=== PATIENT | female | born 1935 | race Caucasian/White ===

== ENCOUNTER → 2016-04-22 | Outpatient (CLI) | payer BC ==
[~2016-04-22] MED LIST: ACET-1311 PO; AMLO-110 PO; ASCO500T16 PO; AZAT50TA17 PO; B-COTAB18 PO; CALCTAB5 PO; CHOL100010 PO; GLUC500C4 PO; MAGN400T6 PO; MULT-506 PO; OMEP40CA PO; PARO10TA PO; PYRI60TA2 PO; VITA100C2 PO
--- NOTE | 2016-04-22 15:45 | MAMMOGRAPHY REPORT ---
BILATERAL DIGITAL SCREENING MAMMOGRAM WITH CAD: 04/22/2016 CLINICAL HISTORY: Routine screening. Patient has no complaints. TECHNIQUE: Bilateral CC and MLO views were obtained. Current study was also evaluated with a Comput er Aided Detection (CAD) system. COMPARISON: Comparison is made to exams dated: 04/19/2015 mammogram, 04/14/2013 mammogram, 04/08/2011 ma mmogram, 04/04/2010 mammogram, and 04/03/2009 mammogram - [facility]. BREAST COMPOSITION: There are scattered areas of fibroglandular density in both breasts. FINDINGS: There are benign-appearing calcifications, stable in each breast. No suspicious mass, arc hitectural distortion or cluster of microcalcifications is seen. IMPRESSION: ACR BI-RADS CATEGORY 1: NEGATIVE There is no mammographic evidence of malignancy. A 1 year screening mammogram is recommended. The p atient will receive written notification of the results. Approximately 10% of breast cancers are not detected with mammography. A negative mammographic repor t should not delay biopsy if a clinically suggestive mass is present. Jacquie Hart M.D. ay/:04/22/2016 15:16:10 Mysql Dba: Troy Hobbs RT(R)(M), [facility] letter sent: Normal 1/2 BI-RADS Code: ACR BI-RADS Category 1: Negative
== END | disposition home or self-care (01) ==
LOC: C.MAMM 10:08
PROVIDERS: ATTEND Internal Medicine
DX: Z12.31 Encounter for screening mammogram for malignant neoplasm of breast (principal)

== ENCOUNTER → 2016-09-09 | Outpatient (CLI) | payer BC | END | disposition home or self-care (01) | LOC: C.MAMM 08:54 | PROVIDERS: ATTEND Internal Medicine | DX: M85.851 Other specified disorders of bone density and structure, right thigh (principal); M85.852 Other specified disorders of bone density and structure, left thigh; S02.40DA Maxillary fracture, left side, initial encounter for closed fracture; S82.002A Unspecified fracture of left patella, initial encounter for closed fracture; X58.XXXA Exposure to other specified factors, initial encounter ==

== ENCOUNTER → 2017-04-24 | Outpatient (CLI) | payer BC ==
--- NOTE | 2017-04-24 13:58 | MAMMOGRAPHY REPORT ---
BILATERAL DIGITAL SCREENING MAMMOGRAM TOMOSYNTHESIS WITH CAD: 04/24/2017 CLINICAL HISTORY: Routine screening. Patient has no complaints. TECHNIQUE: Breast tomosynthesis in addition to standard 2D mammography was performed. Current study was also evaluated with a Computer Aided Detection (CAD) system. COMPARISON: Comparison is made to exams dated: 04/22/2016 mammogram, 04/19/2015 mammogram, 04/18/2014 m ammogram, 04/14/2013 mammogram, 04/13/2012 mammogram, and 04/08/2011 mammogram - [facility]. BREAST COMPOSITION: There are scattered areas of fibroglandular density in both breasts. FINDINGS: No suspicious masses, calcifications, or areas of architectural distortion are noted in ei ther breast. There has been no significant interval change compared to prior exams. IMPRESSION: ACR BI-RADS CATEGORY 1: NEGATIVE There is no mammographic evidence of malignancy. A 1 year screening mammogram is recommended. The pa tient will receive written notification of the results. Approximately 10% of breast cancers are not detected with mammography. A negative mammographic report should not delay biopsy if a clinically suggestive mass is present. Verna He M.D. /:04/24/2017 13:38:39 Cost Accounting Analyst: Azucena RAJAN(Garo)(M), [facility] letter sent: Normal 1/2 BI-RADS Code: ACR BI-RADS Category 1: Negative
== END | disposition home or self-care (01) ==
LOC: C.MAMM 09:51
PROVIDERS: ATTEND Internal Medicine
DX: Z12.31 Encounter for screening mammogram for malignant neoplasm of breast (principal)

== ENCOUNTER → 2017-06-30 | Outpatient (CLI) | payer BC ==
[2017-06-30 14:42] LABS: BASO % 0.5 %; BASO ABS # 0.02 K/uL (0-0.2); EOS % 2.7 %; EOS ABS # 0.11 K/uL (0-0.5); HEMATOCRIT 38.2 % (37-47); HEMOGLOBIN 12.7 g/dL (12.0-16.0); IG# 0.01 K/uL (0.00-0.02); LYMPH % 22.1 %; MEAN CELL VOLUME 100.8 fL (80-100); MEAN CORPUSCULAR HEMOGLOBIN 33.5 pg (25-34); MEAN CORPUSCULAR HGB CONC 33.2 g/dl (32-36); MONO % 13.2 %; MONO ABS # 0.54 K/uL (0.11-0.59); NEUT % 61.3 %; PLATELET COUNT 237 K/uL (130-400); RED CELL DISTRIBUTION WIDTH CV 14.1 % (11.5-14.5); WHITE BLOOD COUNT 4.08 K/uL (4.8-10.8)
[2017-06-30 15:14] LABS: TOTAL PROTEIN 6.8 gm/dl (6.4-8.2)
== END | disposition home or self-care (01) ==
LOC: C.LAB1850 13:32
PROVIDERS: ATTEND Psychiatry & Neurology Neuromuscular Medicine
DX: G47.00 Insomnia, unspecified (principal)

== ENCOUNTER → 2017-07-17 | Outpatient (CLI) | payer BC | END | disposition home or self-care (01) | LOC: C.LAB1850 13:01 | PROVIDERS: ATTEND Psychiatry & Neurology Neurology | DX: G70.00 Myasthenia gravis without (acute) exacerbation (principal) ==

== ENCOUNTER → 2017-08-17 | Outpatient (CLI) | payer BC ==
[2017-08-17 15:39] LABS: BASO % 0.9 %; BASO ABS # 0.04 K/uL (0-0.2); EOS % 2.4 %; EOS ABS # 0.11 K/uL (0-0.5); HEMOGLOBIN 12.7 g/dL (12.0-16.0); IG# 0.01 K/uL (0.00-0.02); LYMPH % 30.3 %; LYMPH ABS # 1.42 K/uL (1.2-3.4); MEAN CELL VOLUME 101.3 fL (80-100); MEAN CORPUSCULAR HGB CONC 32.6 g/dl (32-36); MONO % 9.2 %; MONO ABS # 0.43 K/uL (0.11-0.59); NEUT ABS # 2.67 K/uL (1.4-6.5); PLATELET COUNT 207 K/uL (130-400); RED CELL DISTRIBUTION WIDTH CV 14.4 % (11.5-14.5); RED CELL DISTRIBUTION WIDTH SD 53.3 fL (36.4-46.3); WHITE BLOOD COUNT 4.68 K/uL (4.8-10.8)
[2017-08-17 16:01] LABS: ALBUMIN 3.1 gm/dl (3.4-5.0); ALT/SGPT 25 U/L (12-78); AST/SGOT 31 U/L (15-37); BLOOD UREA NITROGEN 21 mg/dl (7-18); CALCIUM 8.7 mg/dl (8.5-10.1); CARBON DIOXIDE 31 mmol/L (21-32); CREATININE 0.95 mg/dl (0.60-1.20); GLUCOSE 90 mg/dl (70-99); POTASSIUM 4.4 mmol/L (3.5-5.1); SODIUM 140 mmol/L (136-145)
[2017-08-17 16:11] LABS: ALKALINE PHOSPHATASE 70 U/L (45-117); CHOLESTEROL 206 mg/dl (0-200); LDL CHOLESTEROL CALCULATED 118 mg/dl; TOTAL PROTEIN 7.2 gm/dl (6.4-8.2)
== END | disposition home or self-care (01) ==
LOC: C.LAB1850 14:48
PROVIDERS: ATTEND Internal Medicine
DX: I10 Essential (primary) hypertension (principal)

== ENCOUNTER → 2017-11-02 | Outpatient (CLI) | payer BC ==
[~2017-11-02] MED LIST changes: -AMLO-110 PO; +AMLO5TAB3 PO
--- NOTE | 2017-11-02 11:07 | DIAGNOSTIC IMAGING REPORT ---
(JARON/BLAD)RETROPERITON COMP HISTORY: Obstruction R33.9 Incomplete bladder [id number] COMPARISON: None. FINDINGS: Right kidney: Maximum dimension 8.9 cm. Mild hydroureteronephrosis. Normal corticomedullary differentiation and cortical thickness. Left kidney: Maximum dimension 8.8 cm. Mild hydronephrosis. Several small renal cysts. Normal corticomedullary differentiation and cortical thickness. Bladder: No bladder wall thickening. The bilateral ureteral jets were identified. IMPRESSION: 1. Mild bilateral hydroureteronephrosis. 2. Several small left renal cysts 3. Mild renal atrophy most likely age-related. The above report was generated using voice recognition software. It may contain grammatical, syntax or spelling errors. Electronically signed by: Aldo Beauchamp M.D. 11/02/2017 11:05 AM Dictated Date/Time: 11/02/2017 11:03 AM
[2017-11-02 13:11] LABS: ALBUMIN 3.2 gm/dl (3.4-5.0); ALKALINE PHOSPHATASE 79 U/L (45-117); ALT/SGPT 24 U/L (12-78); AST/SGOT 26 U/L (15-37); BLOOD UREA NITROGEN 22 mg/dl (7-18); CALCIUM 8.9 mg/dl (8.5-10.1); CARBON DIOXIDE 28 mmol/L (21-32); CREATININE 0.97 mg/dl (0.60-1.20); GLUCOSE 60 mg/dl (70-99); POTASSIUM 4.3 mmol/L (3.5-5.1); SODIUM 137 mmol/L (136-145); TOTAL PROTEIN 7.2 gm/dl (6.4-8.2)
== END | disposition home or self-care (01) ==
LOC: C.ULTR 10:12
PROVIDERS: ATTEND Urology
DX: R33.9 Retention of urine, unspecified (principal)

== ENCOUNTER 2024-05-16 17:24 | Inpatient (IN) ==
[2024-05-16] MEDS: SODIUM CHLORIDE 0.9% 1,000 ML IV SCH ×2 (18:06→20:20)
--- NOTE | 2024-05-16 18:20 | XRay Report ---
INDICATION: Cough. TECHNIQUE: Frontal radiograph of the chest. COMPARISON: Radiograph from 03/21/2020. FINDINGS: The cardiomediastinal silhouette and pulmonary vasculature appear within normal limits. 1 mild elevation of the left hemidiaphragm. Chronic appearing interstitial lung markings. No infiltrate, pleural effusion or pneumothorax. No acute osseous abnormality evident. IMPRESSION: No acute cardiopulmonary process. Electronically signed by Christiano Roach 05-16-2024 6:20 PM
[2024-05-16 18:28] LABS: Basophils # (auto) 0.05 K/uL (0.00-0.20); Basophils % (auto) 0.7 %; Eosinophils # (auto) 0.03 K/uL (0.00-0.50); Eosinophils % (auto) 0.4 %; Hematocrit (blood only) 37.4 % (37.0-47.0); Hemoglobin 12.4 g/dl (12.0-16.0); Immature Granulocytes # (auto) 0.03 K/uL (0.01-0.20); Immature Granulocytes % (auto) 0.4 %; Lymphocytes # (auto) 0.91 K/uL (1.20-3.40); Lymphocytes % (auto) 12.4 %; Mean Corpuscular Hemoglobin 32.1 pg (25.0-34.0); Mean Corpuscular Hgb Conc 33.2 g/dL (32.0-36.0); Mean Corpuscular Volume 96.9 fL (80.0-100.0); Mean Platelet Volume 10.4 fL (9.4-12.4); Monocytes # (auto) 0.58 K/uL (0.11-0.59); Monocytes % (auto) 7.9 %; Neutrophils # (auto) 5.73 K/uL (1.40-6.50); Neutrophils % (auto) 78.2 %; Platelet Count 178 K/uL (130-400); RDW Coefficient of Variation 13.3 % (11.5-14.5); RDW Standard Deviation 47.2 fL (36.4-46.3); Red Blood Count 3.86 M/uL (4.20-5.40); White Blood Count 7.33 K/ul (4.8-10.8)
[2024-05-16 18:47] LABS: Albumin Level 4.2 gm/dl (3.4-5.0); BUN Creatinine Ratio 34.2 (10-20); Bilirubin Direct 0.4 mg/dl (0-0.2); Bilirubin,Total 1.3 mg/dl (0.2-1.0); Calcium 10.1 mg/dl (8.6-10.3); Creatinine Clr Calc Pharmacy 34.2 ml/min; Magnesium 1.9 mg/dl (1.7-2.4); Potassium 3.5 mmol/L (3.5-5.1); Total Protein 7.3 gm/dl (6.0-8.3)
[2024-05-16 19:05] LABS: Troponin I High Sensitivity 55.8 pg/ml (0-14)
[2024-05-16 19:07] LABS: Appearance Urine Clear (Clear); Bacteria Urine Automated 1+ (None Seen); Bilirubin Urine Negative (Negative); Blood Urine 1+ (Negative); Cast Urine Automated 0-2 /lpf (0-2); Color Urine Yellow; Glucose Urine UA Negative (Negative); Ketones Urine 4+ (Negative); Leukocyte Esterase Urine Trace (Negative); Nitrite Urine Positive (Negative); Protein Urine 1+ (Negative); Specific Gravity Urine 1.023 (1.000-1.030); Urobilinogen Urine Negative (Negative); WBC Urine Automated 21-50 /hpf (0-5)
[2024-05-16 19:10] LABS: INR 1.1 (0.9-1.1); Prothrombin Time 12.3 Seconds (9.0-12.0)
[2024-05-16 19:22] LABS: Adenovirus PCR Not Detected (NotDetected); Bordetella parapertussis PCR Not Detected (NotDetected); Bordetella pertussis PCR Not Detected (NotDetected); Chlamydia pneumoniae PCR Not Detected (NotDetected); Coronavirus 229E PCR Not Detected (NotDetected); Coronavirus CoV-2 (COVID19)PCR Not Detected (NotDetected); Coronavirus HKU1 PCR Not Detected (NotDetected); Coronavirus NL63 PCR Not Detected (NotDetected); Coronavirus OC43PCR Not Detected (NotDetected); Human Metapneumovirus PCR Not Detected (NotDetected); Influenza A PCR Not Detected (NotDetected); Influenza B PCR Not Detected (NotDetected); Mycoplasma pneumoniae PCR Not Detected (NotDetected); Parainfluenza Virus 1 PCR Not Detected (NotDetected); Parainfluenza Virus 2 PCR Not Detected (NotDetected); Parainfluenza Virus 3 PCR Not Detected (NotDetected); Parainfluenza Virus 4 PCR Not Detected (NotDetected); Respiratory Syncytial VirusPCR Not Detected (NotDetected); Rhinovirus/Enterovirus PCR Not Detected (NotDetected)
[2024-05-16] MEDS: cefTRIAXone SODIUM 2,000 MG/50 ML BAG IV STA (20:20)
--- NOTE | 2024-05-16 21:25 | History & Physical Report ---
Date of Service May 16, 2024 Assessment & Plan (1) Rhabdomyolysis: (2) Metabolic encephalopathy: (3) Transaminitis: (4) Acute dehydration: (5) Elevated troponin: (6) Fall: (7) Acute UTI (urinary tract infection): (8) Myasthenia gravis: Plan Patient is a 88 y/o female with a past medical history of myasthenia gravis, hypertension, GERD, depression. She presented to the ED with her after they were found in their home on the floor by their grandson. It is unsure how long they were on the ground for, patient denies falling, confused from baseline on arrival. She is being admitted for rhabdomyolysis and PT/OT evals. She also was found to have UTI. #rhabdomyolysis/Transaminitis/acute dehydration 2/2 fall and on ground for multiple days BUN chronically elevated but acutely worsened to 26, BUN/CR 34.2 Anion gap 15 CK 1338 Creatinine stable, lactate negative, electrolytes WNL, procal WNL UA showed hematuria, 1+ protein, 4+ ketones Transaminitis total bili 1.3, direct bili 0.4, AST 105, ALT 58; trend CMP given 1 L NSS bolus in ED, continue fluid resuscitation with NSS @125ml/hr VBG and uric acid with a.m. labs Trend CK #metabolic encephalopathy head CT negative for acute changes, atrophy and chronic microvascular ischemic changes no electrolyte abnormalities Anticipate to improve with Tx above Melatonin prn as at risk for hospital-acquired delirium, promote good sleep-wake cycles #elevated troponin 2/2 above 55.8 -> 55.5 denies chest pain EKG showed NSR, no ischemic changes Trend troponin and monitor on telemetry #Fall unwitnessed, patient found on ground by grandson No traumatic injury seen on diagnostic imaging Tylenol as needed PT/OT to eval Fall and aspiration precautions #UTI Patient incontinent of bladder at baseline, denies urinary symptoms UTI highly likely given poor hygiene as on ground for multiple days UA infectious versus contaminant; 1+ protein, 4+ ketones, positive for nitrates, leukocyte esterase, 21-50 WBC, 3-5 epithelial cells, 1+ bacteria continue Rocephin follow urine cultures and blood cultures #myasthenia gravis History of myasthenia gravis and follows with neurology continue pyridostigmine hold azathioprine with acute infection Chronic stable diagnoses: HTNcontinue metoprolol Depressioncontinue paroxetine GERDcontinue pantoprazole Urinary incontinencecontinue tolterodine, Rush in place from ED VTE ppx: SCDs, low risk and fall risk Diet: heart healthy Dispo: med/tele Admission and Anticipated Discharge Date Admission Date: 05/16/24 History of Present Illness Chief Complaint: fall Primary Care Provider: Michelle Erickson MD Patient is a 88 y/o female with a past medical history of myasthenia gravis, hypertension, GERD, depression. She presented to the ED with her hisband after they were found in their home on the floor by their grandson. It is unsure how long they were on the ground for, patient denies falling, confused from baseline on arrival. She is being admitted for rhabdomyolysis and PT/OT evals. Patient seen at bedside with and [id number] present. She is alert and oriented x4 but still confused. She stated that her slid to the floor in the hallway and she got on the floor in the living room to stretch her legs. She is unsure of how long they were on the ground for but feels as though they laid down on Thursday. She denies falling and stated they went to the ground on their own. She stated that she was talking to the people on the TV and they were not understanding her and just laughing at her when she tried to asked them for help. She stated she slid around the house resulting in pain of her elbows, knees, and tailbone. However patient's [id number] noted that they have a phone in the kitchen but neither of them slipped to the kitchen to try to get the phone. Patient's grandson checks in on them frequently and found them on the ground today bringing them to the ED. Patient denies headache, dizziness, lightheadedness, dyspnea, chest pain, abdominal pain, nausea, dysuria, hematuria. Patient is incontinent of bladder at baseline. She stated that she denies urinary symptoms however did have a diaper on for the last states she was on the floor and was unable to get up to go to the bathroom. She stated she is thirsty on exam but she has not had fluids in multiple days. She denies nicotine use. She lives at home with her . She stated that their grandson checks on them frequently. They have another grandson and granddaughter that do not check in on them as often but do call. She stated they also have neighbors that check in often and assist with household tasks. She does not use assistance at baseline, denies difficulty with ambulation. She does not use oxygen at baseline. She has not had her home medications in multiple days due to being on the floor. She wishes to be full code at this time. Allergies Allergy/AdvReac Type Severity Reaction Status Date / Time No Known Allergies Allergy Verified 06/10/23 13:59 Home Medications Medication Instructions Recorded Confirmed Type acetaminophen 325 mg tablet 650 mg PO Q6H PRN Pain 11/08/18 05/16/24 History ascorbic acid (vitamin C) 500 mg 500 mg PO QAM #30 tabs 11/08/18 05/16/24 History tablet azathioprine 50 mg tablet 50 mg PO BID 11/08/18 05/16/24 History cholecalciferol (vitamin D3) 25 1,000 units PO QAM 11/08/18 05/16/24 History mcg (1,000 unit) tablet magnesium oxide 400 mg (241.3 mg 800 mg PO QID 11/08/18 07/31/23 History magnesium) tablet vitamin E succinate 268 mg (400 400 units PO QAM 11/08/18 07/31/23 History unit) tablet calcium lactate 84 mg PO QAM 03/21/19 05/16/24 History glucosamine sulf dipot 1 cap PO QAM 03/21/19 07/31/23 History chlr,msm,chond 550 mg-C 30 mg-norm 1 mg capsule (Glucosamine Chondroitin) multivitamin 1 tab PO QAM 03/21/19 07/31/23 History vitamin B complex 1 tab PO QAM 03/21/19 07/31/23 History pyridostigmine bromide 60 mg tablet See Rx Instructions PO QID 90 days 05/14/22 05/16/24 Rx #270 tabs tolterodine 2 mg tablet 2 mg PO BID 90 days #180 tabs 05/27/23 05/16/24 Rx pantoprazole 20 mg tablet,delayed 20 mg PO QAM #90 tabs 06/10/23 05/16/24 Rx release varicella-zoster glycoE [id number] 0.5 ml IM ONCE #1 ea 06/10/23 07/31/23 Rx adj(PF) 50 mcg/0.5 mL IM susp, kit (Shingrix (PF)) paroxetine HCl 10 mg tablet 10 mg PO QAM #90 tabs 06/24/23 05/16/24 Rx metoprolol succinate 25 mg 25 mg PO QAM #90 tabs 09/22/23 05/16/24 Rx tablet,extended release 24 hr Past Med/Surg History Problem List (Updated 05/18/24 @ 14:42 by Tom Atkinson DO) Overflow diarrhea Cognitive decline Asymptomatic bacteriuria Delirium Acute hypokalemia Metabolic encephalopathy Transaminitis Acute UTI (urinary tract infection) (Acute) Elevated troponin (Acute) Rhabdomyolysis (Acute) Fall (Acute) Acute dehydration (Acute) Myasthenia gravis (Chronic) Acid reflux disease (Acute) Arthralgia of multiple sites (Acute) Depression (Acute) Gait disturbance (Acute) Gastric nodule (Acute) Hematuria, microscopic (Acute) Hiatal hernia (Acute) Hypertension (Acute) Kyphoscoliosis (Acute) Muscle weakness (Acute) Osteopenia (Acute) Tiredness (Acute) Voice disturbance (Acute) Health care maintenance Personal history of immunosupression therapy (Acute) Left knee pain Medical History Serum potassium elevated PVD (peripheral vascular disease) Acute renal failure Subdural hemorrhage Nausea and vomiting Menopause Pleural effusion Gastrointestinal hemorrhage Fracture of orbit Left wrist injury Anemia Incontinence Neck stiffness Incomplete bladder emptying UTI (urinary tract infection) Backache Constipation Head trauma Dysuria Urinary retention Bradycardia Surgical History S/P loop electrosurgical excision procedure S/P foot surgery Family History Mother No pertinent family history Other Family history non-contributory Denies family history of Ovarian cancer Prostate cancer Myocardial infarction Breast cancer Colorectal cancer Social History Smoking Status: Never smoker Second Hand Exposure: No; Hx Alcohol Use: No Hx Substance Use: No Preferred Language: Mac[place] Communication Ability: Effective Visual Impairment: No Limitations Hearing Ability: Normal Hand Developer Required: No Beliefs That Will Affect Care: None marital status: Current Living Situation: Spouse current occupational status: retired Feels Safe at Home: Yes Safety Concerns: Feels Safe At This Time Dental Care, Regularly: Yes Physical Activity Frequency: 3-4 Times per Week Physical Activity Frequency Comment: Y-Water therapy Seatbelt Use: always Sunscreen Use: Yes Assistive Devices: None Review of Systems Review of Systems: see HPI Physical Exam Physical Exam: The patient is awake, alert and oriented 3, well developed and well nourished, normocephalic and atraumatic, in no acute distress. Non-toxic appearing. HEENT- EOMI, mucous membranes dry. Hearing grossly intact. Heart-normal S1 and S2. No murmurs, rubs or gallops. Lungs-clear bilaterally, no respiratory distress, no accessory muscle use. Abdomen-normal bowel sounds and soft. No ascites noted. Non-tender. Extremities- no clubbing, cyanosis, or edema. Rheumatologic-normal range of motion. Musculoskeletal: Extremities: extremities normal to inspection Hip: hip normal to inspection, no deformity, no skin erythema and no ecchymosis Knee: knee normal to inspection, no deformity, no skin erythema and no ecchymosis Results & Data Results & Data Vital Signs (Past 12 Hours) Vital Signs Temp Pulse Resp BP Pulse Ox O2 Del Method 05/16/24 20:30 72 21 135/90 95 Room Air 05/16/24 19:54 73 17 98 Room Air 05/16/24 19:48 82 18 98 Room Air 05/16/24 19:30 74 22 160/79 H 97 Room Air 05/16/24 19:21 80 24 98 Room Air 05/16/24 19:18 78 23 100 Room Air 05/16/24 19:00 137/91 05/16/24 18:51 20 98 Room Air 05/16/24 18:31 153/87 H 05/16/24 18:27 75 17 99 Room Air 05/16/24 17:30 36.5 C 75 24 142/88 H 100 Room Air Laboratory Results Reviewed CBC, PT/INR, CMP, bio fire, UA, CK, troponin Diagnostic Findings Reviewed head CT, chest CT, cervical spine CT, A/P CT, CXR Medications Administered ED: 1 l NSS bolus + 2G Rocephin ECG Additional Comments: NSR Code Status & VTE Plan Code Status full code VTE Prophylaxis Plan VTE Prophylaxis will be ordered: Yes Supervising Physician Co-Signing Physician Notes Attending addendum: I have physically seen this patient, have supervised the RENEE's activities, and agree with the H&P unless as otherwise noted. Assessment and Plan: The patient is an 88-year-old female with a past medical history including myasthenia gravis, hypertension, GERD, and depression. She was brought to the emergency department with her after her grandson found her in their home on the floor. It is unsure how long she was on the ground for, and the patient is not able to contribute significantly to HPI or ROS. Laboratories are suggestive for rhabdomyolysis, dehydration, and urinary tract infection #Rhabdomyolysis/transaminitis/acute dehydration- Found on the floor at home for unknown length of time. CK 1338, AST 105, ALT 58 and troponin of 55.5 All consistent with rhabdomyolysis Status post 1 L normal saline bolus in ED Continue IV fluid resuscitation with NSS at 125 mL/h x 1 additional liter VBG and uric acid with a.m. labs Follow serial CBC with differential, chemistry profile and CK Acute metabolic encephalopathy/UTI- Secondary to dehydration and rhabdo as noted above and urinary tract infection Follow urine culture and sensitivity Empiric ceftriaxone 2 g IV daily Follow serial laboratories as noted CT scan head without contrast without acute findings, does show cerebral atrophy and chronic microvascular ischemic changes Elevated troponin- In association with rhabdomyolysis Initial 55.8 with follow-up 55.5 no cardiac workup needed however will repeat in the a.m. Myasthenia gravis- Continue pyridostigmine Holding azathioprine while acutely infected If flare, may need to have Solu-Medrol PG Care Time/CCT Total # of Minutes Spent Total Time Spent with Patient: Total time spent is greater than 50% in coordination of care (as documented) at patient's floor/unit and/or counseling patient: Coding Level of Care Code 93320 INT INP/OBS CARE 3/75MIN Diagnoses Rhabdomyolysis M62.82 Metabolic encephalopathy G93.41 Transaminitis R74.01 Acute dehydration E86.0 Elevated troponin R79.89 Fall W19.XXXA Acute UTI (urinary tract infection) N39.0 Myasthenia gravis G70.00
--- NOTE | 2024-05-16 21:51 | Emergency Department Note ---
Impression & Plan Acute dehydration, Fall, Rhabdomyolysis, Elevated troponin, Acute UTI (urinary tract infection) ED Provider Note NAME: DHARA CLANCY AGE: 88 SEX: Female INFORMANT: Patient ED PROVIDER(S): Tom Ornelas MD CHIEF COMPLAINT: Fall PLAN: Disposition: Admitted Outpatient prescription management: none Referral: None MEDICAL DECISION MAKING: Patient presented because of a fall. Workup was initiated. CT imaging of the head, neck, chest abdomen pelvis were performed. Blood work revealed dehydration, mild rhabdomyolysis, elevated troponin. Urinalysis concerning for infection. Patient was hydrated and treated with IV Rocephin. CT imaging did not reveal any acute traumatic findings. BioFire testing was negative. On reassessment the patient was feeling improved. Mental status was good and she was answering questions appropriately. Discussed further management in the hospital with the patient and family. They were in agreement. Consultation was made with Dr. Edmond Mitchell of the [facility] service. Patient was evaluated in the ER for further management. Care/management discussed with: physical therapy manager Level of care consideration(s): After review of the information above and other included data, I feel the patient requires escalation of care to admission Triage Nursing notes: reviewed and agree them. Vital Signs: reviewed and remarkable for no significant abnormalities Additional History obtained from: Family Chronic Medical/Social Conditions affecting care: Myasthenia, hypertension Prior/ Outside/ External records reviewed: none Differential Diagnosis: Infection, dehydration, metabolic abnormality, hypo/hyperglycemia, electrolyte disturbance, anemia, hypoxia, cardiac sources, intracerebral event, toxicologic, neurologic, rhabdomyolysis, as well as other pathologies. Diagnostics, independently interpreted by me: ECG: Twelve-lead ECG was normal sinus rhythm at [address] elevation or depression. Cardiac Monitoring: Cardiac monitoring ordered by me: The patient was placed on continuous cardiac monitoring and observed. It revealed a normal sinus rhythm at 72 beats per minute without ectopy or evidence of dysrhythmia. Medical decision rules: none Imaging studies: Chest x-ray. Findings: A chest x-ray was performed and revealed no pneumothorax, effusion, infiltrate, pulmonary edema, free air under the diaphragm, or wide mediastinum. Impression: No acute disease. Head CT: A noncontrast CT scan of the head was performed and was negative for tumor, fracture, intracranial hemorrhage, or other acute pathology. CT scan of the cervical spine, chest abdomen and pelvis are negative for acute traumatic injury. HPI: 88 year old Female arrives for evaluation of a fall. Patient reportedly fell few days ago and could not get off the floor. She seemed confused when family found her. Patient was complaining of some mild lower back pain but otherwise denies any injury from her fall. She feels generally weak and has a dry mouth. She has not been able to eat or drink as she was stuck on the floor. Her was also found on the floor. Pt denies LOC, headache, fevers, chills, diaphoresis, neck pain, chest pain, breathing difficulties, nausea, vomiting, abdominal pain, upper back pain, melena, hematochezia, urinary symptoms, numbness, lymphadenopathy, rash, or other complaints. PAST MEDICAL HISTORY: See Below, myasthenia gravis, hypertension PAST SURGICAL HISTORY: See Below, cholecystectomy SOCIAL HISTORY: See Below, HOME MEDICATIONS: See Below ALLERGIES: See Below VITALS: See Below PHYSICAL EXAMINATION: GENERAL: Awake, alert, [id number], in no acute distress HENT: Normocephalic, atraumatic. Oropharynx with dry mucous membrane. EYES: Normal conjunctiva. Sclera non-icteric. PERRL. NECK: Inspection normal. Non-tender. Supple. No nuchal rigidity. FROM. No masses. RESPIRATORY: Clear to auscultation. No wheezes. No rales. Normal respiratory effort. CARDIAC: Normal rate. Normal rhythm. Systolic murmur present. Extremities warm and well perfused. Pulses equal. No JVD. GI: Soft, non-distended. No tenderness to palpation. No rebound or guarding. No masses. RECTAL: Deferred. MUSCULOSKELETAL: Atraumatic. Chest examination reveals no tenderness. The back is kyphotic on inspection without obvious abnormality. There is no CVA tenderness to palpation. No joint edema. Mild lumbar tenderness. Some mild skin breakdown noted in the area of the sacrum consistent with a pressure wound. No cellulitis. LOWER EXTREMITIES: Calves are equal size bilaterally and non-tender. No edema. No discoloration. NEURO: Normal sensorium. No focal sensory or motor deficits noted. Speech normal. SKIN: No rash or jaundice noted. PROCEDURES: none CRITICAL CARE: none OBSERVATION NOTE: none Past Med/Surg History Problem List (Updated 05/17/24 @ 00:15 by Background Daemon) Metabolic encephalopathy Transaminitis Acute UTI (urinary tract infection) (Acute) Elevated troponin (Acute) Rhabdomyolysis (Acute) Fall (Acute) Acute dehydration (Acute) Myasthenia gravis (Chronic) Acid reflux disease (Acute) Arthralgia of multiple sites (Acute) Depression (Acute) Gait disturbance (Acute) Gastric nodule (Acute) Hematuria, microscopic (Acute) Hiatal hernia (Acute) Hypertension (Acute) Kyphoscoliosis (Acute) Muscle weakness (Acute) Osteopenia (Acute) Tiredness (Acute) Voice disturbance (Acute) Health care maintenance Personal history of immunosupression therapy (Acute) Left knee pain Medical History Serum potassium elevated PVD (peripheral vascular disease) Acute renal failure Subdural hemorrhage Nausea and vomiting Menopause Pleural effusion Gastrointestinal hemorrhage Fracture of orbit Left wrist injury Anemia Incontinence Neck stiffness Incomplete bladder emptying UTI (urinary tract infection) Backache Constipation Head trauma Dysuria Urinary retention Bradycardia Surgical History S/P loop electrosurgical excision procedure S/P foot surgery Family History Mother No pertinent family history Other Family history non-contributory Denies family history of Ovarian cancer Prostate cancer Myocardial infarction Breast cancer Colorectal cancer Social History Smoking Status: Never smoker Second Hand Exposure: No; Hx Alcohol Use: No Hx Substance Use: No Preferred Language: Kosovan Communication Ability: Effective Visual Impairment: No Limitations Hearing Ability: Normal marital status: Current Living Situation: Spouse current occupational status: retired Feels Safe at Home: Yes Dental Care, Regularly: Yes Physical Activity Frequency: 3-4 Times per Week Physical Activity Frequency Comment: Y-Water therapy Seatbelt Use: always Sunscreen Use: Yes Allergies Allergies Allergy/AdvReac Type Severity Reaction Status Date / Time No Known Allergies Allergy Verified 06/10/23 13:59 Home Meds Home Medications Medication Instructions Recorded Confirmed acetaminophen 325 mg tablet 650 mg PO Q6H PRN Pain 11/08/18 05/16/24 ascorbic acid (vitamin C) 500 mg 500 mg PO QAM #30 tabs 11/08/18 05/16/24 tablet azathioprine 50 mg tablet 50 mg PO BID 11/08/18 05/16/24 cholecalciferol (vitamin D3) 25 1,000 units PO QAM 11/08/18 05/16/24 mcg (1,000 unit) tablet magnesium oxide 400 mg (241.3 mg 800 mg PO QID 11/08/18 07/31/23 magnesium) tablet vitamin E succinate 268 mg (400 400 units PO QAM 11/08/18 07/31/23 unit) tablet calcium lactate 84 mg PO QAM 03/21/19 05/16/24 glucosamine sulf dipot 1 cap PO QAM 03/21/19 07/31/23 chlr,msm,chond 550 mg-C 30 mg-norm 1 mg capsule (Glucosamine Chondroitin) multivitamin 1 tab PO QAM 03/21/19 07/31/23 vitamin B complex 1 tab PO QAM 03/21/19 07/31/23 Previous Rx's Medication Instructions Recorded pyridostigmine bromide 60 mg tablet See Rx Instructions PO QID 90 days 05/14/22 #270 tabs tolterodine 2 mg tablet 2 mg PO BID 90 days #180 tabs 05/27/23 pantoprazole 20 mg tablet,delayed 20 mg PO QAM #90 tabs 06/10/23 release varicella-zoster glycoE [id number] 0.5 ml IM ONCE #1 ea 06/10/23 adj(PF) 50 mcg/0.5 mL IM susp, kit (Shingrix (PF)) paroxetine HCl 10 mg tablet 10 mg PO QAM #90 tabs 06/24/23 metoprolol succinate 25 mg 25 mg PO QAM #90 tabs 09/22/23 tablet,extended release 24 hr Results & Data (ED) Vital Signs Vital Signs - 24 hr 05/16/24 17:30 05/16/24 18:27 05/16/24 18:31 Temperature 36.5 C Temperature Source Oral Pulse Rate 75 75 Pulse Rate from SpO2 Sensor Respiratory Rate 24 17 Respiratory Effort / Characteristics Non-Labored Spontaneous Respiratory Depth Normal Respiratory Pattern Regular Blood Pressure 142/88 H 153/87 H Blood Pressure Mean 106 122 Pulse Oximetry 100 99 Oxygen Delivery Method Room Air Room Air Sepsis Recent Fever Within 48 Hours No Sepsis New/Unexplained Change in Mental Status Yes Sepsis Action Taken by Nursing Physician Notified 05/16/24 18:51 05/16/24 19:00 05/16/24 19:18 Temperature Temperature Source Pulse Rate 78 Pulse Rate from SpO2 Sensor 74 Respiratory Rate 20 23 Respiratory Effort / Characteristics Respiratory Depth Respiratory Pattern Blood Pressure 137/91 Blood Pressure Mean 116 Pulse Oximetry 98 100 Oxygen Delivery Method Room Air Room Air Sepsis Recent Fever Within 48 Hours Sepsis New/Unexplained Change in Mental Status Sepsis Action Taken by Nursing 05/16/24 19:21 05/16/24 19:30 05/16/24 19:48 Temperature Temperature Source Pulse Rate 80 74 82 Pulse Rate from SpO2 Sensor Respiratory Rate 24 22 18 Respiratory Effort / Characteristics Respiratory Depth Respiratory Pattern Blood Pressure 160/79 H Blood Pressure Mean 106 Pulse Oximetry 98 97 98 Oxygen Delivery Method Room Air Room Air Room Air Sepsis Recent Fever Within 48 Hours Sepsis New/Unexplained Change in Mental Status Sepsis Action Taken by Nursing 05/16/24 19:54 05/16/24 20:30 05/16/24 21:27 Temperature Temperature Source Pulse Rate 73 72 72 Pulse Rate from SpO2 Sensor Respiratory Rate 17 21 19 Respiratory Effort / Characteristics Respiratory Depth Respiratory Pattern Blood Pressure 135/90 Blood Pressure Mean 105 Pulse Oximetry 98 95 97 Oxygen Delivery Method Room Air Room Air Room Air Sepsis Recent Fever Within 48 Hours Sepsis New/Unexplained Change in Mental Status Sepsis Action Taken by Nursing 05/16/24 21:30 05/16/24 21:33 05/16/24 21:51 Temperature Temperature Source Pulse Rate 70 71 Pulse Rate from SpO2 Sensor Respiratory Rate 18 14 Respiratory Effort / Characteristics Respiratory Depth Respiratory Pattern Blood Pressure 148/76 H Blood Pressure Mean 96 Pulse Oximetry 97 100 Oxygen Delivery Method Room Air Room Air Sepsis Recent Fever Within 48 Hours Sepsis New/Unexplained Change in Mental Status Sepsis Action Taken by Nursing 05/16/24 21:54 05/16/24 22:00 05/16/24 22:03 Temperature Temperature Source Pulse Rate 72 69 Pulse Rate from SpO2 Sensor Respiratory Rate 22 17 Respiratory Effort / Characteristics Respiratory Depth Respiratory Pattern Blood Pressure 151/76 H Blood Pressure Mean 106 Pulse Oximetry 98 99 Oxygen Delivery Method Room Air Room Air Sepsis Recent Fever Within 48 Hours Sepsis New/Unexplained Change in Mental Status Sepsis Action Taken by Nursing Laboratory Data 05/16/24 17:50 05/16/24 17:50 Lab Results 05/16/24 05/16/24 05/16/24 Range/Units 17:40 17:50 18:41 WBC 7.33 (4.8-10.8) K/ul RBC 3.86 L (4.20-5.40) M/uL Hgb 12.4 (12.0-16.0) g/dl Hct 37.4 (37.0-47.0) % MCV 96.9 (80.0-100.0) fL MCH 32.1 (25.0-34.0) pg MCHC 33.2 (32.0-36.0) g/dL RDW Std Deviation 47.2 H (36.4-46.3) fL RDW Coeff of Ann 13.3 (11.5-14.5) % Plt Count 178 (130-400) K/uL MPV 10.4 (9.4-12.4) fL Immature Gran % (Auto) 0.4 % Neut % (Auto) 78.2 % Lymph % (Auto) 12.4 % [place] % (Auto) 7.9 % Eos % (Auto) 0.4 % Baso % (Auto) 0.7 % Neut # (Auto) 5.73 (1.40-6.50) K/uL Lymph # (Auto) 0.91 L (1.20-3.40) K/uL [place] # (Auto) 0.58 (0.11-0.59) K/uL Eos # (Auto) 0.03 (0.00-0.50) K/uL Baso # (Auto) 0.05 (0.00-0.20) K/uL Immature Gran # (Auto) 0.03 (0.01-0.20) K/uL PT 12.3 H (9.0-12.0) Seconds INR 1.1 (0.9-1.1) Sodium 145 (136-145) mmol/L Potassium 3.5 (3.5-5.1) mmol/L Chloride 107 (98-107) mmol/L Carbon Dioxide 23 (21-32) mmol/L Anion Gap 15 H (3-11) BUN 26 H (6-23) mg/dl Creatinine 0.76 (0.6-1.2) mg/dl Est Cr Clr Drug Dosing 34.2 ml/min eGFR 74.85 BUN/Creatinine Ratio 34.2 H (10-20) Glucose 84 (70-99(Fasting)) mg/dl POC Glucose 67 L* (70-99) mg/dl Lactate 1.5 (0.4-2.0) mmol/L Calcium 10.1 (8.6-10.3) mg/dl Magnesium 1.9 (1.7-2.4) mg/dl Total Bilirubin 1.3 H (0.2-1.0) mg/dl Direct Bilirubin 0.4 H (0-0.2) mg/dl AST 105 H (13-39) U/L ALT 58 H (7-52) U/L Alkaline Phosphatase 65 (34-104) U/L Total Creatine Kinase 1338 H (26-192) U/L Troponin I High Sens 55.8 H* (0-14) pg/ml Total Protein 7.3 (6.0-8.3) gm/dl Albumin 4.2 (3.4-5.0) gm/dl Procalcitonin 0.04 (0-0.5) ng/ml Urine Color Yellow Urine Appearance Clear (Clear) Urine pH 6.0 (4.5-7.5) Ur Specific [place] 1.023 (1.000-1.030) Urine Protein 1+ H (Negative) Urine Glucose (UA) Negative (Negative) Urine Ketones 4+ H (Negative) Urine Blood 1+ H (Negative) Urine Nitrite Positive A (Negative) Urine Bilirubin Negative (Negative) Urine Urobilinogen Negative (Negative) Ur Leukocyte Esterase Trace H (Negative) Urine WBC (Auto) 21-50 H (0-5) /hpf Urine RBC (Auto) 3-5 H (0-2) /hpf U Hyaline Cast (Auto) 0-2 (0-2) /lpf U Epithel Cells (Auto) 3-5 H (0-2) /hpf Urine Bacteria (Auto) 1+ H (None Seen) Adenovirus (PCR) Not Detected (NotDetected) B. pertussis DNA (PCR) Not Detected (NotDetected) B.parapertussis DNA PCR Not Detected (NotDetected) C. pneumoniae DNA (PCR) Not Detected (NotDetected) Coronavirus OC43 (PCR) Not Detected (NotDetected) Coronavirus HKU1 (PCR) Not Detected (NotDetected) Coronavirus 229E (PCR) Not Detected (NotDetected) SARS-CoV-2 (PCR) Not Detected (NotDetected) Coronavirus NL63 (PCR) Not Detected (NotDetected) Human Metapneumovir PCR Not Detected (NotDetected) Influenza Type A (PCR) Not Detected (NotDetected) Influenza Type B (PCR) Not Detected (NotDetected) M. pneumoniae (PCR) Not Detected (NotDetected) Parainfluenza 1 (PCR) Not Detected (NotDetected) Parainfluenza 2 (PCR) Not Detected (NotDetected) Parainfluenza 3 (PCR) Not Detected (NotDetected) Parainfluenza 4 (PCR) Not Detected (NotDetected) RSV (PCR) Not Detected (NotDetected) Entero/Rhino (PCR) Not Detected (NotDetected) 05/16/24 05/16/24 Range/Units 19:48 22:06 WBC (4.8-10.8) K/ul RBC (4.20-5.40) M/uL Hgb (12.0-16.0) g/dl Hct (37.0-47.0) % MCV (80.0-100.0) fL MCH (25.0-34.0) pg MCHC (32.0-36.0) g/dL RDW Std Deviation (36.4-46.3) fL RDW Coeff of Ann (11.5-14.5) % Plt Count (130-400) K/uL MPV (9.4-12.4) fL Immature Gran % (Auto) % Neut % (Auto) % Lymph % (Auto) % [place] % (Auto) % Eos % (Auto) % Baso % (Auto) % Neut # (Auto) (1.40-6.50) K/uL Lymph # (Auto) (1.20-3.40) K/uL [place] # (Auto) (0.11-0.59) K/uL Eos # (Auto) (0.00-0.50) K/uL Baso # (Auto) (0.00-0.20) K/uL Immature Gran # (Auto) (0.01-0.20) K/uL PT (9.0-12.0) Seconds INR (0.9-1.1) Sodium (136-145) mmol/L Potassium (3.5-5.1) mmol/L Chloride (98-107) mmol/L Carbon Dioxide (21-32) mmol/L Anion Gap (3-11) BUN (6-23) mg/dl Creatinine (0.6-1.2) mg/dl Est Cr Clr Drug Dosing ml/min eGFR BUN/Creatinine Ratio (10-20) Glucose (70-99(Fasting)) mg/dl POC Glucose 80 (70-99) mg/dl Lactate (0.4-2.0) mmol/L Calcium (8.6-10.3) mg/dl Magnesium (1.7-2.4) mg/dl Total Bilirubin (0.2-1.0) mg/dl Direct Bilirubin (0-0.2) mg/dl AST (13-39) U/L ALT (7-52) U/L Alkaline Phosphatase (34-104) U/L Total Creatine Kinase (26-192) U/L Troponin I High Sens 55.5 H* (0-14) pg/ml Total Protein (6.0-8.3) gm/dl Albumin (3.4-5.0) gm/dl Procalcitonin (0-0.5) ng/ml Urine Color Urine Appearance (Clear) Urine pH (4.5-7.5) Ur Specific [place] (1.000-1.030) Urine Protein (Negative) Urine Glucose (UA) (Negative) Urine Ketones (Negative) Urine Blood (Negative) Urine Nitrite (Negative) Urine Bilirubin (Negative) Urine Urobilinogen (Negative) Ur Leukocyte Esterase (Negative) Urine WBC (Auto) (0-5) /hpf Urine RBC (Auto) (0-2) /hpf U Hyaline Cast (Auto) (0-2) /lpf U Epithel Cells (Auto) (0-2) /hpf Urine Bacteria (Auto) (None Seen) Adenovirus (PCR) (NotDetected) B. pertussis DNA (PCR) (NotDetected) B.parapertussis DNA PCR (NotDetected) C. pneumoniae DNA (PCR) (NotDetected) Coronavirus OC43 (PCR) (NotDetected) Coronavirus HKU1 (PCR) (NotDetected) Coronavirus 229E (PCR) (NotDetected) SARS-CoV-2 (PCR) (NotDetected) Coronavirus NL63 (PCR) (NotDetected) Human Metapneumovir PCR (NotDetected) Influenza Type A (PCR) (NotDetected) Influenza Type B (PCR) (NotDetected) M. pneumoniae (PCR) (NotDetected) Parainfluenza 1 (PCR) (NotDetected) Parainfluenza 2 (PCR) (NotDetected) Parainfluenza 3 (PCR) (NotDetected) Parainfluenza 4 (PCR) (NotDetected) RSV (PCR) (NotDetected) Entero/Rhino (PCR) (NotDetected) Administered Medications Sodium Chloride (Nss) 1,000 mls @ 125 mls/hr IV .Q8H NORMA Stop: 05/17/24 19:29 Last Admin: 05/16/24 20:20 Dose: 125 mls/hr Documented By: [facility] Discontinued Medications Sodium Chloride (Nss) 1,000 mls @ 999 mls/hr IV .Q1H1M NORMA Stop: 05/16/24 18:45 Last Infusion: 05/16/24 19:20 Dose: Infused Documented By: [facility] Admin: 05/16/24 18:06 Dose: 999 mls/hr Documented By: [facility] Ceftriaxone Sodium (Rocephin) 2,000 mg in 50 mls @ 100 mls/hr IV NOW STA Stop: 05/16/24 19:52 Last Infusion: 05/16/24 20:55 Dose: Infused Documented By: [facility] Admin: 05/16/24 20:20 Dose: 100 mls/hr Documented By: [facility] Imaging Data Radiologist's Impression: Chest X-Ray 05/16/24 17:44 INDICATION: Cough. TECHNIQUE: Frontal radiograph of the chest. COMPARISON: Radiograph from 03/21/2020. FINDINGS: The cardiomediastinal silhouette and pulmonary vasculature appear within normal limits. 1 mild elevation of the left hemidiaphragm. Chronic appearing interstitial lung markings. No infiltrate, pleural effusion or pneumothorax. No acute osseous abnormality evident. IMPRESSION: No acute cardiopulmonary process. Electronically signed by Christiano Roach 05-16-2024 6:20 PM Abdomen/Pelvis CT 05/16/24 19:24 Exam(s): CT ABDOMEN + PELVIS Without Contrast EXAM: CT Abdomen and Pelvis Without Intravenous Contrast CLINICAL HISTORY: Reason for exam: trauma. TECHNIQUE: Axial computed tomography images of the abdomen and pelvis without intravenous contrast. CTDI is 64.63 mGy and DLP is 1228.39 mGy-cm. Automated exposure control was utilized for the study. A dose lowering technique was utilized adhering to the principles of ALARA. COMPARISON: CT 03/21/2019 FINDINGS: ABDOMEN: Liver: Unremarkable. Gallbladder and bile ducts: Cholecystectomy. Pancreas: Unremarkable. Spleen: Unremarkable. Adrenals: Unremarkable. Kidneys and ureters: Unremarkable. No obstructing stones. No hydronephrosis. Stomach and bowel: Unremarkable. PELVIS: Appendix: No findings to suggest acute appendicitis. Bladder: Rush catheter within the bladder. Reproductive: Unremarkable as visualized. ABDOMEN and PELVIS: Intraperitoneal space: Unremarkable. No free air. No significant fluid collection. Bones/joints: No acute fracture. Osteopenia. Degenerative changes in the spine. Soft tissues: Unremarkable. Vasculature: Aortobiiliac atherosclerotic calcifications. Lymph nodes: Unremarkable. IMPRESSION: No visualized traumatic injury. Electronically signed by: Cole Del Castillo MD 05/16/24 22:[address] 05/16/24 19:24 Exam(s): CT C SPINE EXAM: CT Cervical Spine Without Intravenous Contrast CLINICAL HISTORY: Reason for exam: Trauma. TECHNIQUE: Axial computed tomography images of the cervical spine without intravenous contrast. CTDI is 20.82 mGy and DLP is 351.51 mGy-cm. Automated exposure control was utilized for the study. A dose lowering technique was utilized adhering to the principles of ALARA. COMPARISON: No relevant prior studies available. FINDINGS: Vertebrae: No acute fracture. Reversal of the normal cervical lordosis. Osteopenia. Advanced degenerative changes. Ankylosis from C3 through L C6. Ankylosis of C7 and T1. Multilevel disc osteophytes. Moderate to severe canal stenosis at C4-5 and C5-6. Soft tissues: Unremarkable. IMPRESSION: 1. No acute findings in the cervical spine. 2. Moderate to severe canal stenosis at C4-5 and C5-6. Electronically signed by: Cole Del Castillo MD 05/16/24 22:[address] 05/16/24 19:24 Exam(s): CT CHEST Without Contrast EXAM: CT Chest Without Intravenous Contrast CLINICAL HISTORY: Reason for exam: trauma. TECHNIQUE: Axial computed tomography images of the chest without intravenous contrast. CTDI is 64.63 mGy and DLP is 1228.39 mGy-cm. Automated exposure control was utilized for the study. A dose lowering technique was utilized adhering to the principles of ALARA. COMPARISON: No relevant prior studies available. FINDINGS: Lungs: No pulmonary contusion. Dependent atelectasis in the lungs bilaterally. Pleural based scarring the periphery of the right upper lobe. Pleural space: No pleural effusion or pneumothorax. Heart: Moderate coronary artery calcifications. Bones/joints: No acute appearing fracture. Mild height loss at T6 appears chronic. Soft tissues: Unremarkable. Vasculature: Aortic atherosclerotic calcifications. Lymph nodes: Unremarkable. IMPRESSION: No acute findings in the chest. Electronically signed by: Cole Del Castillo MD 05/16/24 23:[address] 05/16/24 19:24 Exam(s): CT HEAD Without Contrast EXAM: CT Head Without Intravenous Contrast CLINICAL HISTORY: Reason for exam: Trauma. TECHNIQUE: Axial computed tomography images of the head/brain without intravenous contrast. CTDI is 38.31 mGy and DLP is 546.36 mGy-cm. Automated exposure control was utilized for the study. A dose lowering technique was utilized adhering to the principles of ALARA. COMPARISON: 02/14/2022 FINDINGS: Brain: No intracranial hemorrhage, mass-effect, or cerebral edema. Atrophy and chronic microvascular ischemic changes. Ventricles: Unremarkable. Bones/joints: Unremarkable. No fracture. Soft tissues: Unremarkable. Sinuses: Fluid and mucosal thickening in the left sphenoid sinus. Mastoid air cells: Unremarkable as visualized. IMPRESSION: 1. No acute intracranial abnormality. 2. Atrophy and chronic microvascular ischemic changes. 3. Left sphenoid sinusitis. Electronically signed by: Cole Del Castillo MD 05/16/24 23:11 PM Discharge Plan Visit Data Chief Complaint: Fall Stated Complaint: altered mental status ED Provider: Tom Ornelas Discharge Problem: Acute dehydration, Fall, Rhabdomyolysis, Elevated troponin, Acute UTI (urinary tract infection) Patient Disposition: Admitted As Inpatient Discharge Instructions Interventions: ED Discharge Assessment Last Done: 05/17/24 00:36
--- NOTE | 2024-05-16 22:56 | CT Scan Report ---
Exam(s): CT C SPINE EXAM: CT Cervical Spine Without Intravenous Contrast CLINICAL HISTORY: Reason for exam: Trauma. TECHNIQUE: Axial computed tomography images of the cervical spine without intravenous contrast. CTDI is 20.82 mGy and DLP is 351.51 mGy-cm. Automated exposure control was utilized for the study. A dose lowering technique was utilized adhering to the principles of ALARA. COMPARISON: No relevant prior studies available. FINDINGS: Vertebrae: No acute fracture. Reversal of the normal cervical lordosis. Osteopenia. Advanced degenerative changes. Ankylosis from C3 through L C6. Ankylosis of C7 and T1. Multilevel disc osteophytes. Moderate to severe canal stenosis at C4-5 and C5-6. Soft tissues: Unremarkable. IMPRESSION: 1. No acute findings in the cervical spine. 2. Moderate to severe canal stenosis at C4-5 and C5-6. Electronically signed by: Cole Del Castillo MD 05/16/24 22:55 PM
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
[2024-05-17] MEDS ORDERED: DOCUSATE SODIUM 100 MG CAP PO PRN (00:36)
[2024-05-17] MEDS ORDERED: ONDANSETRON INJ 2 MG/ML 2 ML VIAL IV PRN (00:36)
[2024-05-17 03:51] LABS: Base Excess VBG -1.8 mEq/L; HCO3 VBG 23 mmol/L; Oxygen Saturation VBG 93.1 %; PCO2 VBG 39 mmHg (38-50); PO2 VBG 61 mmHg; pH VBG 7.38 (7.36-7.41)
[2024-05-17 03:56] LABS: Basophils # (auto) 0.04 K/uL (0.00-0.20); Basophils % (auto) 0.6 %; Eosinophils # (auto) 0.05 K/uL (0.00-0.50); Eosinophils % (auto) 0.7 %; Hematocrit (blood only) 29.2 % (37.0-47.0); Hemoglobin 9.9 g/dl (12.0-16.0); Immature Granulocytes # (auto) 0.02 K/uL (0.01-0.20); Immature Granulocytes % (auto) 0.3 %; Lymphocytes # (auto) 0.97 K/uL (1.20-3.40); Lymphocytes % (auto) 13.9 %; Mean Corpuscular Hemoglobin 32.9 pg (25.0-34.0); Mean Corpuscular Hgb Conc 33.9 g/dL (32.0-36.0); Mean Platelet Volume 10.1 fL (9.4-12.4); Monocytes # (auto) 0.73 K/uL (0.11-0.59); Monocytes % (auto) 10.4 %; Neutrophils # (auto) 5.19 K/uL (1.40-6.50); Neutrophils % (auto) 74.1 %; Platelet Count 140 K/uL (130-400); RDW Coefficient of Variation 13.3 % (11.5-14.5); RDW Standard Deviation 48.1 fL (36.4-46.3); Red Blood Count 3.01 M/uL (4.20-5.40)
[2024-05-17 04:23] LABS: Albumin Globulin Ratio 1.3 (0.9-2); Albumin Level 3.1 gm/dl (3.4-5.0); BUN Creatinine Ratio 36.1 (10-20); Bilirubin,Total 0.8 mg/dl (0.2-1.0); Calcium 8.2 mg/dl (8.6-10.3); Creatinine Clr Calc Pharmacy 42.6 ml/min; Globulin 2.3 gm/dl (2.5-4.0); Magnesium 1.6 mg/dl (1.7-2.4); Total Protein 5.4 gm/dl (6.0-8.3); Uric Acid 5.6 mg/dl (2.6-7.2)
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
[2024-05-17] MEDS: PLASMA-LYTE A 1,000 ML IV SCH (08:18)
[2024-05-17] MEDS: MAGNESIUM SULFATE / D5W 1 GM/100 ML BAG IV ONE (08:23)
[2024-05-17] MEDS: POTASSIUM CHLORIDE CRTAB 20 MEQ TABCR PO ONE ×2 (08:36→14:11)
[2024-05-17] MEDS: PARoxetine HCL 10 MG TAB PO SCH (08:48)
[2024-05-17] MEDS: METOPROLOL SUCC 25MG EXT REL TAB PO SCH (08:48)
[2024-05-17] MEDS: OXYBUTYNIN CHLORIDE XL 5 MG TABCR PO SCH (08:49)
[2024-05-17] MEDS: pyRIDostigmine bromide 60 MG TAB PO SCH ×2 (08:50→12:08)
[2024-05-17] MEDS: PANTOprazole 40 MG TAB PO SCH (08:53)
--- NOTE | 2024-05-17 16:58 | Billing Data ---
Date of Service May 17, 2024 Coding Level of Care Code 17264 SUB INP/OBS CARE
[2024-05-17] MEDS ORDERED: cefTRIAXone SODIUM 2,000 MG/50 ML BAG IV SCH (19:00)
[2024-05-17] MEDS: ACETAMINOPHEN 325 MG TAB PO PRN (20:08)
--- NOTE | 2024-05-17 21:34 | Electrocardiogram Report ---
Test Reason : Blood Pressure : */* mmHG Vent. Rate : 72 BPM Atrial Rate : 72 BPM P-R Int : 140 ms QRS Dur : 80 ms QT Int : 438 ms P-R-T Axes : 84 -12 0 degrees QTcB Int : 479 ms Normal sinus rhythm Normal ECG When compared with ECG of 21-Mar-2019 11:44, No significant change Confirmed by Edi Caraballo ([id number]) on 05/17/2024 9:33:45 PM Referred By: REFERRED SELF Confirmed By: Edi Caraballo
[2024-05-18 06:02] LABS: Basophils # (auto) 0.05 K/uL (0.00-0.20); Basophils % (auto) 0.9 %; Eosinophils % (auto) 5.3 %; Hematocrit (blood only) 30.6 % (37.0-47.0); Hemoglobin 10.4 g/dl (12.0-16.0); Immature Granulocytes # (auto) 0.02 K/uL (0.01-0.20); Immature Granulocytes % (auto) 0.4 %; Lymphocytes # (auto) 1.21 K/uL (1.20-3.40); Lymphocytes % (auto) 21.5 %; Mean Corpuscular Hemoglobin 32.7 pg (25.0-34.0); Mean Corpuscular Volume 96.2 fL (80.0-100.0); Mean Platelet Volume 10.3 fL (9.4-12.4); Monocytes # (auto) 0.64 K/uL (0.11-0.59); Monocytes % (auto) 11.4 %; Neutrophils # (auto) 3.41 K/uL (1.40-6.50); Neutrophils % (auto) 60.5 %; Platelet Count 148 K/uL (130-400); RDW Coefficient of Variation 13.4 % (11.5-14.5); RDW Standard Deviation 47.5 fL (36.4-46.3); Red Blood Count 3.18 M/uL (4.20-5.40); White Blood Count 5.63 K/ul (4.8-10.8)
[2024-05-18 06:30] LABS: Calcium 7.9 mg/dl (8.6-10.3); Potassium 3.8 mmol/L (3.5-5.1)
[2024-05-18 06:36] LABS: BUN Creatinine Ratio 30.2 (10-20); Creatinine Clr Calc Pharmacy 45.4 ml/min
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
[2024-05-18] MEDS ORDERED: POLYETHYLENE (MIRALAX) 17 GM PACK PO PRN (12:50)
--- NOTE | 2024-05-18 13:16 | Billing Data ---
Date of Service May 18, 2024 Coding Level of Care Code 47880 SUB INP/OBS CARE
[2024-05-18] MEDS: azaTHIOprine 50 MG TAB PO SCH (20:31)
[2024-05-18] MEDS: MELATONIN 3 MG TAB PO PRN (20:33)
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
[2024-05-19 08:38] LABS: Hematocrit (blood only) 31.1 % (37.0-47.0); Hemoglobin 10.5 g/dl (12.0-16.0); Mean Corpuscular Hemoglobin 32.5 pg (25.0-34.0); Mean Corpuscular Hgb Conc 33.8 g/dL (32.0-36.0); Mean Corpuscular Volume 96.3 fL (80.0-100.0); Mean Platelet Volume 10.4 fL (9.4-12.4); Platelet Count 137 K/uL (130-400); RDW Coefficient of Variation 13.4 % (11.5-14.5); RDW Standard Deviation 47.7 fL (36.4-46.3); Red Blood Count 3.23 M/uL (4.20-5.40); White Blood Count 5.01 K/ul (4.8-10.8)
[2024-05-19 09:12] LABS: Calcium 8.1 mg/dl (8.6-10.3); Creatinine Clr Calc Pharmacy 50.2 ml/min; Potassium 3.6 mmol/L (3.5-5.1)
--- NOTE | 2024-05-19 12:48 | Billing Data ---
Date of Service May 19, 2024 Coding Level of Care Code 37548 SUB INP/OBS CARE 3MIN
[2024-05-19] MEDS: valACYclovir HCL 500 MG TABLET PO SCH (13:05)
--- NOTE | 2024-05-20 06:48 | Hospitalist Progress Note ---
Date of Service May 20, 2024 Assessment & Plan (1) Fall: (2) Acute dehydration: (3) Shingles: (4) Cognitive decline: (5) Overflow diarrhea: (6) Delirium: (7) Rhabdomyolysis: (8) Myasthenia gravis: (9) Asymptomatic bacteriuria: Plan Jaqui is a 88 y/o female with a past medical history of myasthenia gravis, hypertension, GERD, depression. She presented to the ED with her after they were found in their home on the floor by their grandson Michael. It is unsu re how long they were on the ground for, patient denies falling, confused from baseline on arrival. She is being admitted for rhabdomyolysis, dehydration, PT/OT. Fall likely from weakness due to dehydration vs mechanical PT/OT Grandson Michael has given consent for pt and Ayan to go to [facility] in [place] as they have a suite available CM on case, plan to go to acute rehab to continue building back strength prior to LTC #Acute dehydration Plasmalyte discontinued due to good oral intake Encourage good oral intake as tolerated #Delirium on dementia Prevention measures: have shades open during the day, avoid distractions during conversations PT/OT #Shingles Suspected based on appearance of rash on sacrum just R of midline Valtrex 1g TID for 7 days #Overflow diarrhea Based on CT abd/pelvis 05/16/24, stool in colon, likely overflow Colace has been on board, Miralax prn ordered #Rhabdomyolysis 2/2 fall and on ground for multiple days, CK downtrending BUN and Cr improving, anion gap closed Lactate negative, electrolytes WNL, procal WNL #Transaminitis CT abd/pelvis negative for liver findings BMP AM #Elevated troponin Downtrending EKG 05/16/24 NSR, no ischemic changes #Asymptomatic Bacteriuria Patient incontinent of bladder at baseline, denies urinary symptoms UA 05/16/24 showing 1+ bacteria, 1+ blood, 4+ ketones, +nitrites Stopped CTX due to lack of urinary concerns or symptoms aside from incontinence BCx no growth at 24hrs; UCx E. coli, not treating due to lack of infection #Myasthenia Gravis Follows with neurology PT/OT continue pyridostigmine back on Azathioprine due to clinical lack of acute infection Chronic stable diagnoses: HTNcontinue metoprolol Depressioncontinue paroxetine GERDcontinue pantoprazole Urinary incontinencecontinue tolterodine, Rush in place from ED VTE ppx: SCDs, low risk and fall risk Diet: heart healthy Dispo: cont. med/tele; continued inpatient stay for PT/OT, likely LTC following acute rehab on d/c Admission and Anticipated Discharge Date Admission Date: May 16, 2024 Supervising Physician Co-Signing Physician Notes I personally examined the patient and verified all tomas points of history and exam, discussed case, and agree with decision making with Dr Atkinson Very little HPI review of systems today. She discussed wanting to go home, whenever I talk to her about being weak, she noted that being down on the floor was not her fault and not her doing but she had to escape from that place somehow. Clearly quite disoriented. Vitals noted, in general she is awake and alert conversive but seems confused. Breathing unlabored no accessory muscle use good effort. Neuro without focal deficits. Fall/weakness/inability to get upseems to be predominantly deconditioning and dehydrationunclear which came first, but improved, doing well w PO intake. After discussion with wound nurseunstageable sacral pressure ulcer POA - local care, offloading. shingles Continue Valtrex. PT/OT eval and treat. currently lacks capacityas does husbandobviously will need to continue to follow. Have been updating family that patient and lack capacity and that they will be needed to assist in disposition decision making. Anticipate need for SNF. DVT proph - SCDs Subjective Jaqui was seen and evaluated at bedside this AM, sitting comfortably in bedside alpa, appearing much more alert and awake than day prior. States she is feeling well and had a good night's sleep, denies any pain or discomfort at this time. Notes she has been having a good appetite and is hungry for breakfast. Had a loose bowel movement last night but not intolerable, informed about overflow diarrhea based on CT abd/pelvis, and how stool softener should help. Re-informed about going to LTC suite with Ayan, she was understanding and amenable at least for the foreseeable future. Review of Systems Review of Systems: no fever, body aches, chills, headache Physical Exam Physical Exam: Gen: A&Ox3, appearing sleepy but in no acute distress HEENT: EOM intact, PERRL b/l, moist mucous membranes CV: RRR, +s1/s2, no m/g/r Resp: clear to auscultation though soft breath sounds, no respiratory distress, no wheeze/rales/rhonchi - pulses: 2+ carotid, 2+ radial, 2+ post tib GI/abd: +BS, abdomen soft, nontender to palpation Ext: no clubbing, cyanosis, or edema. - RLE 2nd distal toe nail with likely fu ngal infection, appearing surrounding skin with mild erythema MSK: b/l UE 5/5 strength, b/l LE 5/5 strength, moves all extremities on command Neuro: no facial droop, speech intact and coherent, successfully followed command to wiggle fingers and toes Psych: mood-affect congruence, logical and accurate responses to simple questions; insight poor Skin: 2x3cm area on sacrum just L of midline of grouped raised bumps with mild erythema, tenderness to palpation, no oozing seen - R buttock 1x1cm unstageable decubitus ulcer, non-oozing, non-bleeding Results & Data Results & Data Vital Signs (Past 12 Hours) Vital Signs Temp Pulse Pulse Resp BP Pulse Ox O2 Del Method 05/20/24 03:24 36.6 C 60 18 120/64 95 Room Air 05/20/24 01:09 56 L 05/19/24 22:23 36.7 C 57 L 18 97/54 L 97 Room Air 05/19/24 21:00 Room Air 05/19/24 19:33 36.4 C L 62 18 108/62 99 Room Air Resident Activity Tracking Resident Involvement: Resident Care Provided Care Provided: Adult Hospital Medicine
[2024-05-20 10:46] LABS: Hemoglobin 11.7 g/dl (12.0-16.0); Mean Corpuscular Hemoglobin 32.6 pg (25.0-34.0); Mean Corpuscular Hgb Conc 32.5 g/dL (32.0-36.0); Mean Corpuscular Volume 100.3 fL (80.0-100.0); Mean Platelet Volume 10.7 fL (9.4-12.4); Platelet Count 153 K/uL (130-400); RDW Coefficient of Variation 13.2 % (11.5-14.5); RDW Standard Deviation 49.1 fL (36.4-46.3); Red Blood Count 3.59 M/uL (4.20-5.40); White Blood Count 5.45 K/ul (4.8-10.8)
[2024-05-20 10:58] LABS: BUN Creatinine Ratio 19.7 (10-20); Calcium 8.7 mg/dl (8.6-10.3); Creatinine Clr Calc Pharmacy 42.8 ml/min; Potassium 3.5 mmol/L (3.5-5.1)
--- NOTE | 2024-05-20 12:57 | Billing Data ---
Date of Service May 20, 2024 Coding Level of Care Code 74298 SUB INP/OBS CARE
[2024-05-20] MEDS: valACYclovir HCL 500 MG TABLET PO SCH (20:19)
[2024-05-21 06:23] LABS: Hematocrit (blood only) 31.6 % (37.0-47.0); Hemoglobin 10.4 g/dl (12.0-16.0); Mean Corpuscular Hgb Conc 32.9 g/dL (32.0-36.0); Mean Corpuscular Volume 97.2 fL (80.0-100.0); Mean Platelet Volume 10.5 fL (9.4-12.4); Platelet Count 159 K/uL (130-400); RDW Coefficient of Variation 13.2 % (11.5-14.5); RDW Standard Deviation 46.7 fL (36.4-46.3); Red Blood Count 3.25 M/uL (4.20-5.40); White Blood Count 5.37 K/ul (4.8-10.8)
--- NOTE | 2024-05-21 06:38 | Hospitalist Progress Note ---
Date of Service May 21, 2024 Assessment & Plan (1) Fall: (2) Acute dehydration: (3) Shingles: (4) Cognitive decline: (5) Overflow diarrhea: (6) Delirium: (7) Rhabdomyolysis: (8) Myasthenia gravis: (9) Asymptomatic bacteriuria: Plan Jaqui is a 88 y/o female with a past medical history of myasthenia gravis, hypertension, GERD, depression. She presented to the ED with her after they were found in their home on the floor by their grandson Michael. It is unsu re how long they were on the ground for, patient denies falling, confused from baseline on arrival. She is being admitted for rhabdomyolysis, dehydration, PT/OT. #Fall likely from weakness due to dehydration vs mechanical PT/OT Grandson Michael has given consent for pt and Ayan to go to [facility] in [place] as they have a suite available CM on case, plan to go to acute rehab to continue building back strength prior to LTC #Acute dehydration Pt with dry mucus membranes this morning. Encouraged pt to drink water frequently throughout the day Plasmalyte discontinued due to good oral intake Encourage good oral intake as tolerated #Delirium on dementia Baseline confusion reported. Pt was alert to place and time, but seems to be confused regarding the events that led to her and her 's admission. She voices concern about living in assisted living facility due to limited finances. Prevention measures: have shades open during the day, avoid distractions during conversations PT/OT #Shingles Suspected based on appearance of rash on sacrum just R of midline Valtrex 1g adjusted to BID per pharmacy for 7 days due to low GFR #Overflow diarrhea Based on CT abd/pelvis 05/16/24, stool in colon, likely overflow Colace has been on board, Miralax prn ordered #Rhabdomyolysis 2/2 fall and on ground for multiple days, CK downtrending BUN and Cr improving, anion gap closed Lactate negative, electrolytes WNL, procal WNL #Transaminitis CT abd/pelvis negative for liver findings Check BMP via AM labs #Elevated troponin Resolved EKG 05/16/24 NSR, no ischemic changes #Asymptomatic Bacteriuria Patient incontinent of bladder at baseline, denies urinary symptoms UA 05/16/24 showing 1+ bacteria, 1+ blood, 4+ ketones, +nitrites Stopped CTX due to lack of urinary concerns or symptoms aside from incontinence BCx no growth at 24hrs; UCx E. coli, not treating due to lack of infection #Myasthenia Gravis Follows with neurology PT/OT Continue pyridostigmine Continue Azathioprine due to clinical lack of acute infection Chronic stable diagnoses: HTNcontinue metoprolol Depressioncontinue paroxetine GERDcontinue pantoprazole Urinary incontinencecontinue tolterodine, Rush removed on 05/18/24 VTE ppx: SCDs, low risk and fall risk Diet: heart healthy Dispo: cont. med/tele; continued inpatient stay for PT/OT, likely LTC following acute rehab on d/c Admission and Anticipated Discharge Date Admission Date: May 16, 2024 Supervising Physician Co-Signing Physician Notes I personally examined the patient and verified all tomas points of history and exam, discussed case, and agree with decision making with Dr Atkinson no new issues. no specific complaints Vitals noted, in general she is awake and alert conversive but seems confused. Breathing unlabored no accessory muscle use good effort. Neuro without focal deficits. Fall/weakness/inability to get upseems to be predominantly deconditioning and dehydrationunclear which came first, but improved, doing well w PO intake. After discussion with wound nurseunstageable sacral pressure ulcer POA - local care, offloading. shingles Continue Valtrex. PT/OT ongoing. continues to lack capacityas does husbandobviously will need to continue to follow over time - suspect predominantly from progressed dementia and will not improve. SNF vs H family and case management working on options DVT proph - SCDs Subjective Pt is a 88 yo female who was admitted with her for deconditioning. No acute events over night. This morning, she reports she slept well. She continues with intermittent pain at her buttocks due to skin breakdown from scooting on floor when she was at home. Pt denies chest pain, SOB, fever, chills, abdominal pain, vomiting, diarrhea Pt is orientated to person, place and day. She is confused about situation and past events that led to hospital admission. Review of Systems Review of Systems: As per HPI Physical Exam Physical Exam: Gen: A&Ox3, appearing sleepy but in no acute distress HEENT: EOM intact, PERRL b/l, dry mucous membranes CV: RRR, +s1/s2, no m/g/r Resp: clear to auscultation though soft breath sounds, no respiratory distress, no wheeze/rales/rhonchi GI/abd: +BS, abdomen soft, nontender to palpation Ext: no clubbing, cyanosis, or edema. - RLE 2nd distal toe nail with likely fu ngal infection, appearing surrounding skin with mild erythema MSK: Moves all extremities on command Neuro: no facial droop, speech intact and coherent, sensation is grossly intact Psych: mood-affect congruence, logical and accurate responses to simple questions; insight poor Skin: 2x3cm area on sacrum just L of midline of grouped ulcerations with mild erythema, tenderness to palpation, no oozing seen - R buttock 1x1cm unstageable decubitus ulcer, non-oozing, non-bleeding Results & Data Results & Data Vital Signs (Past 12 Hours) Vital Signs Temp Pulse Pulse Resp BP Pulse Ox O2 Del Method 05/21/24 03:51 36.7 C 63 18 126/68 95 Room Air 05/21/24 00:26 36.3 C L 67 18 107/59 L 95 Room Air 05/20/24 23:59 63 05/20/24 20:05 36.6 C 91 H 18 148/82 H 98 Room Air 05/20/24 19:25 Room Air Resident Activity Tracking Resident Involvement: Resident Care Provided Care Provided: Adult Hospital Medicine
--- NOTE | 2024-05-21 10:29 | Billing Data ---
Date of Service May 21, 2024 Coding Level of Care Code 83400 SUB INP/OBS CARE
--- NOTE | 2024-05-22 06:49 | Hospitalist Progress Note ---
Date of Service May 22, 2024 Assessment & Plan (1) Fall: (2) Acute dehydration: (3) Shingles: (4) Cognitive decline: (5) Overflow diarrhea: (6) Delirium: (7) Rhabdomyolysis: (8) Myasthenia gravis: (9) Asymptomatic bacteriuria: Plan Jaqui is a 88 y/o female with a past medical history of myasthenia gravis, hypertension, GERD, depression. She presented to the ED with her after they were found in their home on the floor by their grandson Michael. It is unsu re how long they were on the ground for, patient denies falling, confused from baseline on arrival. She is being admitted for rhabdomyolysis, dehydration, PT/OT. #Fall likely from weakness due to dehydration vs mechanical PT/OT Grandson Michael has given consent for pt and Ayan to go to [facility] in [place] as they have a suite available CM on case, plan to go to acute rehab to continue building back strength prior to LTC #Acute dehydration - Encouraged pt to drink water frequently throughout the day #Delirium on dementia Baseline confusion reported. Pt was alert to place and time, but seems to be confused regarding the events that led to her and her 's admission. She voices concern about living in assisted living facility due to limited finances. Prevention measures: have shades open during the day, avoid distractions during conversations PT/OT #Shingles Suspected based on appearance of rash on sacrum just R of midline Continue Valtrex 1g adjusted to BID per pharmacy for 7 days due to low GFR #Overflow diarrhea Based on CT abd/pelvis 05/16/24, stool in colon, likely overflow Colace has been on board, Miralax prn ordered #Rhabdomyolysis 05/08 fall and on ground for multiple days, CK noted to have downtrended from 05/16 to 05/17 BUN and Cr stable as of 05/20, anion gap closed #Transaminitis AST/ALT down trended over 05/16 to 05/17. CT abd/pelvis negative for liver findings Follow up BMP in outpatient following hospital discharge #Elevated troponin Resolved EKG 05/16/24 NSR, no ischemic changes #Asymptomatic Bacteriuria Patient incontinent of bladder at baseline, denies urinary symptoms UA 05/16/24 showing 1+ bacteria, 1+ blood, 4+ ketones, +nitrites BCx no growth at 24hrs; UCx E. coli, not treating due to lack of infection #Myasthenia Gravis Follows with neurology PT/OT Continue pyridostigmine Continue Azathioprine due to clinical lack of acute infection Chronic stable diagnoses: HTNcontinue metoprolol Depressioncontinue paroxetine GERDcontinue pantoprazole Urinary incontinencecontinue tolterodine, Rush removed on 05/18/24 VTE ppx: SCDs, low risk and fall risk Diet: heart healthy Dispo: cont. med/tele; continued inpatient stay for PT/OT, likely LTC following acute rehab on d/c Admission and Anticipated Discharge Date Admission Date: May 16, 2024 Supervising Physician Co-Signing Physician Notes I personally examined the patient and verified all tomas points of history and exam, discussed case, and agree with decision making with Dr Scott no new issues. no specific complaints. less talkative today Vitals noted, in general she is awake and alert less conversive still seems confused. Breathing unlabored no accessory muscle use good effort. Neuro without focal deficits. Fall/weakness/inability to get upseems to be predominantly deconditioning and dehydrationunclear which came first, but improved, doing well w PO intake. After discussion with wound nurseunstageable sacral pressure ulcer POA - local care, offloading. shingles continue Valtrex. PT/OT ongoing. continues to lack capacityas does husbandobviously will need to continue to follow over time - suspect predominantly from progressed dementia and will not improve. SNF vs H family and case management working on options; stable when bed available DVT proph - SCDs Subjective Pt is a 88 yo female who was admitted with her for deconditioning. No acute events over night. This morning, pt reports no new complaints. She was awake, alert and sitting in her chair ready for breakfast. She cannot remember when she had her last BM. Pt denies chest pain, SOB, fever, chills, abdominal pain, vomiting, diarrhea Pt is oriented to person, place and day. Review of Systems Review of Systems: As per HPI Physical Exam Physical Exam: Gen: A&Ox3, appearing sleepy but in no acute distress HEENT: EOM intact, PERRL b/l, dry mucous membranes CV: RRR, +s1/s2, no m/g/r Resp: clear to auscultation though soft breath sounds, no respiratory distress, no wheeze/rales/rhonchi GI/abd: +BS, abdomen soft, nontender to palpation Ext: no clubbing, cyanosis, or edema. - RLE 2nd distal toe nail with likely fu ngal infection, appearing surrounding skin with mild erythema MSK: Moves all extremities on command Neuro: no facial droop, speech intact and coherent, sensation is grossly intact Psych: mood-affect congruence, logical and accurate responses to simple questions; insight poor Skin: 2x3cm area on sacrum just L of midline of grouped ulcerations with mild erythema, tenderness to palpation, no oozing seen - R buttock 1x1cm unstageable decubitus ulcer, non-oozing, non-bleeding Results & Data Results & Data Vital Signs (Past 12 Hours) Vital Signs Temp Pulse Resp BP Pulse Ox O2 Del Method 05/22/24 00:41 36.3 C L 61 20 114/58 L 94 Room Air Resident Activity Tracking Resident Involvement: Resident Care Provided Care Provided: Adult Hospital Medicine
[2024-05-22] MEDS: PANTOprazole 40 MG TAB PO SCH (09:02)
--- NOTE | 2024-05-22 15:58 | Billing Data ---
Date of Service May 22, 2024 Coding Level of Care Code 34228 SUB INP/OBS CARE
--- NOTE | 2024-05-23 07:30 | Hospitalist Progress Note ---
Date of Service May 23, 2024 Assessment & Plan (1) Fall: (2) Acute dehydration: (3) Shingles: (4) Cognitive decline: (5) Overflow diarrhea: (6) Delirium: (7) Rhabdomyolysis: (8) Myasthenia gravis: (9) Asymptomatic bacteriuria: Plan Jaqui is a 88 y/o female with a past medical history of myasthenia gravis, hypertension, GERD, depression. She presented to the ED with her after they were found in their home on the floor by their grandson Michael. It is unsu re how long they were on the ground for, patient denies falling, confused from baseline on arrival. She is being admitted for rhabdomyolysis, dehydration, PT/OT. #Fall -likely from weakness due to dehydration vs mechanical - Under PT/OT -Grandson Michael has given consent for pt and Ayan to go to [facility] in [place] as they have a suite available -She lacks decision making capacity. Cannot go home until there is someone to take care of her and her . -Case Management working on finding Placement for them. #Sacral Pressure Ulcer(Stage 1 ) -Patient reports of pain in sacral region but states it is getting better. -Consult Wound Care. #Acute dehydration -Patient states she is drinking a lot of water. - Encouraged pt to drink water frequently throughout the day #Delirium on dementia -Baseline confusion reported. Pt was alert to place and time, but seems to be confused regarding the events that led to her and her 's admission. -Prevention measures: have shades open during the day, avoid distractions during conversations - regular PT/OT #Shingles -Suspected based on appearance of rash on sacrum just R of midline -Continue Valtrex 1g adjusted to BID per pharmacy for 7 days due to low GFR #Overflow diarrhea -Based on CT abd/pelvis 05/16/24, stool in colon, likely overflow -Colace has been on board, Miralax prn ordered #Rhabdomyolysis -Likely secondary to fall and on ground for multiple days, CK noted to have downtrended from [id number] BUN and Cr stable as of 05/20, anion gap closed #Transaminitis -AST/ALT down trended over 05/16 to 05/[address]. CT abd/pelvis negative for liver findings - Follow up BMP in outpatient following hospital discharge #Elevated troponin Resolved EKG 05/16/24 NSR, no ischemic changes #Asymptomatic Bacteriuria Patient incontinent of bladder at baseline, denies urinary symptoms UA 05/16/24 showing 1+ bacteria, 1+ blood, 4+ ketones, +nitrites BCx no growth at 24hrs; UCx E. coli, not treating due to lack of infection #Myasthenia Gravis -Follows with neurology -PT/OT -Continue pyridostigmine -Continue Azathioprine due to clinical lack of acute infection Chronic stable diagnoses: HTNcontinue metoprolol Depressioncontinue paroxetine GERDcontinue pantoprazole Urinary incontinencecontinue tolterodine, Rush removed on 05/18/24 VTE ppx: SCDs, low risk and fall risk Diet: heart healthy Dispo: cont. med/tele; continued inpatient stay for PT/OT, likely LTC following acute rehab on d/c Admission and Anticipated Discharge Date Admission Date: May 16, 2024 Supervising Physician Co-Signing Physician Notes I personally examined the patient and verified tomas points of history and exam, discussed case, and agree with decision making and plan documented by Dr. Hernandez. Subjective Pt is a 88 yo female who was admitted with her for deconditioning. No acute events over night. She slept pretty good. No new issues. She was awake, alert and sitting in her chair ready for breakfast. She had her BM yesterday. Pt denies chest pain, SOB, fever, chills, abdominal pain, vomiting, diarrhea Pt is oriented to time, place and person. Review of Systems Review of Systems: As per HPI Physical Exam Physical Exam: Gen: A&Ox3, not acute distress HEENT: EOM intact, PERRL b/l, ,moist mucous membranes CV: RRR, +s1/s2, no m/g/r Resp: clear to auscultation though soft breath sounds, no respiratory distress, no wheeze/rales/rhonchi GI/abd: +BS, abdomen soft, nontender to palpation Ext: no clubbing, cyanosis, or edema. - RLE 2nd distal toe nail with likely fu ngal infection, appearing surrounding skin with mild erythema MSK: Moves all extremities on command Neuro: no facial droop, speech intact and coherent, sensation is grossly intact Psych: mood-affect congruence, logical and accurate responses to simple questions; insight poor Skin: 2x3cm area on sacrum just L of midline;Grouped ulcerations with mild eryth maggie, tenderness to palpation, no oozing seen - Right sacral area: 1x1cm unstageable decubitus ulcer, non-oozing, non- bleeding, mild erythema and tenderness to palpation Results & Data Results & Data Vital Signs (Past 12 Hours) Vital Signs Temp Pulse Resp BP Pulse Ox O2 Del Method 05/22/24 23:10 36.3 C L 56 L 18 146/72 H 96 Room Air
--- NOTE | 2024-05-24 07:16 | Hospitalist Progress Note ---
Date of Service May 24, 2024 Assessment & Plan (1) Fall: (2) Acute dehydration: (3) Shingles: (4) Cognitive decline: (5) Overflow diarrhea: (6) Delirium: (7) Rhabdomyolysis: (8) Myasthenia gravis: (9) Asymptomatic bacteriuria: Plan Jaqui is a 88 y/o female with a past medical history of myasthenia gravis, hypertension, GERD, depression. She presented to the ED with her after they were found in their home on the floor by their grandson Michael for unknown number of days. It is unsure how long they were on the ground for, patient denies falling, confused from baseline on arrival. She was being admitted for rhabdomyolysis, dehydration, PT/OT. #Fall -likely from weakness due to dehydration vs mechanical - Under PT/OT -They declined to go to [facility] in [place]. According [facility] and her [email or web address] -Cannot go home until there is someone to take care of her and her . -Case Management working on finding Placement for them. Both of them are insisting on going home and have family assist. They stated they dont have finance for assisted living. CM will contact [facility] and looking for guidance from [facility]. -Had meeting with their Daughter in law and grand son today. Talked about need of official POA for them to make further decisions. #Sacral Pressure Ulcer(Stage 1 ) -Patient reports of pain in sacral region but states it is getting better. -Consult Wound Care. #Acute dehydration -Resolved -Clinically, no signs of dehydration -Will monitor I/O today - Encouraged pt to drink water frequently throughout the day #Delirium on dementia -Baseline confusion reported. Pt was alert to place and time, but seems to be confused regarding the events that led to her and her 's admission. -Prevention measures: have shades open during the day, avoid distractions during conversations - regular PT/OT #Shingles -Suspected based on appearance of rash on sacrum just R of midline -Continue Valtrex 1g adjusted to BID per pharmacy for 7 days due to low GFR #Overflow diarrhea -Based on CT abd/pelvis 05/16/24, stool in colon, likely overflow -Colace has been on board, Miralax PRN ordered #Rhabdomyolysis -Likely secondary to fall and on ground for multiple days, CK noted to have downtrended from 1338>714>58 BUN and Cr stable today, anion gap closed #Transaminitis - Resolved -ALT(05/24): 20 AST(05/24):22 - CT abd /pelvis negative for liver findings #Elevated troponin -Resolved -EKG 05/16/24 NSR, no ischemic changes #Asymptomatic Bacteriuria Patient incontinent of bladder at baseline, denies urinary symptoms UA 05/16/24 showing 1+ bacteria, 1+ blood, 4+ ketones, +nitrites BCx no growth at 24hrs; UCx E. coli, not treating due to lack of infection #Myasthenia Gravis -Follows with neurology -PT/OT -Continue pyridostigmine -Continue Azathioprine due to clinical lack of acute infection Chronic stable diagnoses: HTNcontinue metoprolol Depressioncontinue paroxetine GERDcontinue pantoprazole Urinary incontinencecontinue tolterodine, Rush removed on 05/18/24 VTE ppx: SCDs, low risk and fall risk Diet: heart healthy Dispo: cont. med/tele; continued inpatient stay for PT/OT, May go home if somebody can take care of them 27/10, otherwise assisted facility. CM working on finding placement for them. Admission and Anticipated Discharge Date Admission Date: May 16, 2024 Supervising Physician Co-Signing Physician Notes I personally examined the patient and verified tomas points of history and exam, discussed case, and agree with decision making and plan documented by Dr. Hernandez. Long conversation with patient and her along with the medical team and case management today in the room. Reviewed concerns for patient's to return home due to safety concerns for her and her elderly to care for each other. Patient and are reluctant to make any decisions in terms of long- term care facility, they would like to be together. Had meeting with patient's grandson Michael and [id number], Michael is willing to be POA, are considering elder solo musician to assist with paperwork. Grandson and DIL also express concerns for patient and his to live safely alone in their current living environment. Subjective Pt is a 88 yo female who was admitted with her for deconditioning. No acute events over night. She slept pretty good. No new issues. She was awake, alert and sitting in her chair ready for breakfast. She had her BM yesterday. Pt denies chest pain, SOB, fever, chills, abdominal pain, vomiting, diarrhea Pt is oriented to time, place and person. Review of Systems Review of Systems: As per HPI Physical Exam Physical Exam: Gen: A&Ox3, not acute distress HEENT: EOM intact, PERRL b/l, ,moist mucous membranes CV: RRR, +s1/s2, no m/g/r Resp: clear to auscultation though soft breath sounds, no respiratory distress, no wheeze/rales/rhonchi GI/abd: +BS, abdomen soft, nontender to palpation Ext: no clubbing, cyanosis, or edema. MSK: Moves all extremities on command Neuro: no facial droop, speech intact and coherent, sensation is grossly intact Psych: seems confused about the event that led to her and her husbands condition; answers simple questions insight poor Skin: Approx 2x3 cm area on sacrum just L of midline;Grouped ulcerations with mild erythema, tenderness to palpation, no oozing seen - Right sacral area: Unstageable decubi tus ulcer, non-oozing, non-bleeding, mild erythema and tenderness to palpation Neck: trachea midline Chest (Breasts): normal inspection/palpation of breasts Chest: normal inspection of chest Results & Data Results & Data Vital Signs (Past 12 Hours) Vital Signs Temp Pulse Resp BP Pulse Ox O2 Del Method 05/23/24 22:17 36.4 C L 59 L 18 110/61 96 Room Air
[2024-05-24 11:42] LABS: Basophils # (auto) 0.06 K/uL (0.00-0.20); Basophils % (auto) 1.3 %; Eosinophils # (auto) 0.19 K/uL (0.00-0.50); Hematocrit (blood only) 34.2 % (37.0-47.0); Immature Granulocytes # (auto) 0.02 K/uL (0.01-0.20); Immature Granulocytes % (auto) 0.4 %; Lymphocytes # (auto) 1.08 K/uL (1.20-3.40); Lymphocytes % (auto) 22.7 %; Mean Corpuscular Hemoglobin 32.1 pg (25.0-34.0); Mean Corpuscular Hgb Conc 32.2 g/dL (32.0-36.0); Mean Corpuscular Volume 99.7 fL (80.0-100.0); Mean Platelet Volume 10.5 fL (9.4-12.4); Monocytes # (auto) 0.72 K/uL (0.11-0.59); Monocytes % (auto) 15.1 %; Neutrophils # (auto) 2.69 K/uL (1.40-6.50); Neutrophils % (auto) 56.5 %; Platelet Count 192 K/uL (130-400); RDW Coefficient of Variation 13.3 % (11.5-14.5); RDW Standard Deviation 47.9 fL (36.4-46.3); Red Blood Count 3.43 M/uL (4.20-5.40); White Blood Count 4.76 K/ul (4.8-10.8)
[2024-05-24 12:01] LABS: Albumin Level 3.3 gm/dl (3.4-5.0); Bilirubin,Total 0.6 mg/dl (0.2-1.0); Potassium 4.2 mmol/L (3.5-5.1)
[2024-05-24 12:07] LABS: Albumin Globulin Ratio 1.4 (0.9-2); BUN Creatinine Ratio 27.2 (10-20); Creatinine Clr Calc Pharmacy 32.1 ml/min; Globulin 2.4 gm/dl (2.5-4.0); Total Protein 5.7 gm/dl (6.0-8.3)
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
[2024-05-27] MEDS: RAPID SEQUENCE INDUCTION BAG ONE (14:07)
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
[2024-05-28] MEDS: ENOXAPARIN INJ 40 MG/0.4 ML SYR SQ SCH (08:36)
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
--- NOTE | 2024-05-30 17:46 | Billing Data ---
Date of Service May 30, 2024 Coding Level of Care Code 73800 SUB INP/OBS CARE
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
--- NOTE | 2024-05-31 17:42 | Billing Data ---
Date of Service May 31, 2024 Coding Level of Care Code 78524 SUB INP/OBS CARE 04/30MIN
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
--- NOTE | 2024-06-01 16:15 | Billing Data ---
Date of Service June 01, 2024 Coding Level of Care Code 52562 SUB INP/OBS CARE
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
--- NOTE | 2024-06-02 18:09 | Billing Data ---
Date of Service June 02, 2024 Coding Level of Care Code 91860 SUB INP/OBS CARE
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
--- NOTE | 2024-06-03 17:47 | Billing Data ---
Date of Service June 03, 2024 Coding Level of Care Code 95761 SUB INP/OBS CARE
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
--- NOTE | 2024-06-04 15:57 | Billing Data ---
Date of Service June 04, 2024 Coding Level of Care Code 24536 SUB INP/OBS CARE
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
--- NOTE | 2024-06-05 11:15 | Billing Data ---
Date of Service June 05, 2024 Coding Level of Care Code 25275 SUB INP/OBS CARE
--- NOTE | 2024-06-06 09:49 | Discharge Summary ---
Discharge Summary Date of Service June 06, 2024 Principal Dx & Hospital Course #1 = Principal Diagnosis Plan Jaqui is a 88 y/o female with a past medical history of myasthenia gravis, hypertension, GERD, depression. She presented to the ED with her after they were found in their home on the floor by their grandson Michael for unknown number of days. It is unsure how long they were on the ground for, patient denies falling, confused from baseline on arrival. She was being admitted for rhabdomyolysis, dehydration, PT/OT here for . CM is working on finding placement. No official POA yet. She and her considering their granddaughter Jana to be their POA *Jana is willing to take care of them with special arrangement in private space along with her dad as per conversation with Dr. Nixon on 06/04/2024. Mrs Owusu says Jana is planning to come today, I have not met her so far. Fall, ambulatory dysfunction PT/OT recommending PCF versus 24-hour care. She will patient's granddaughter willing to care for Jaqui and her privately with 24-hour care until facility arrangements are available. #Sacral Pressure Ulcer (Unstageable) -Improving #Acute dehydration -Resolved - Encouraged pt to drink water frequently throughout the day to prevent another episode. Borderline asymptomatic hypotension. Metoprolol dose decreased from 25 to 12.5 mg XR daily #Delirium on dementia Seems back to baseline Severe baseline Cognitive deficit #Shingles - Resolved. -Completed 7 days course of Valtrex. #Overflow diarrhea 2/2 to constipation, improved. #Rhabdomyolysis -Resolved #Asymptomatic Bacteriuria -Urine CS : no growth at 24hrs #Myasthenia Gravis -Follows with neurology outpatient. No flare now. -PT/OT continued. -Continue pyridostigmine -Continue Azathioprine due to clinical lack of acute infection Chronic stable diagnoses: HTNcontinue metoprolol, dose decreased to 12.5mg succinate daily Depressioncontinue paroxetine GERDcontinue pantoprazole Urinary incontinencecontinue tolterodine, Rush removed on 05/18/24 VTE ppx: Lovenox Diet: heart healthy Code: Full Admission HPI Per Admitting Provider Patient is a 88 y/o female with a past medical history of myasthenia gravis, hypertension, GERD, depression. She presented to the ED with her hisband after they were found in their home on the floor by their grandson. It is unsure how long they were on the ground for, patient denies falling, confused from baseline on arrival. She is being admitted for rhabdomyolysis and PT/OT evals. Patient seen at bedside with and [id number] present. She is alert and oriented x4 but still confused. She stated that her slid to the floor in the hallway and she got on the floor in the living room to stretch her legs. She is unsure of how long they were on the ground for but feels as though they laid down on Thursday. She denies falling and stated they went to the ground on their own. She stated that she was talking to the people on the TV and they were not understanding her and just laughing at her when she tried to asked them for help. She stated she slid around the house resulting in pain of her elbows, knees, and tailbone. However patient's [id number] noted that they have a phone in the kitchen but neither of them slipped to the kitchen to try to get the phone. Patient's grandson checks in on them frequently and found them on the ground today bringing them to the ED. Patient denies headache, dizziness, lightheadedness, dyspnea, chest pain, abdominal pain, nausea, dysuria, hematuria. Patient is incontinent of bladder at baseline. She stated that she denies urinary symptoms however did have a diaper on for the last states she was on the floor and was unable to get up to go to the bathroom. She stated she is thirsty on exam but she has not had fluids in multiple days. She denies nicotine use. She lives at home with her . She stated that their grandson checks on them frequently. They have another grandson and granddaughter that do not check in on them as often but do call. She stated they also have neighbors that check in often and assist with household tasks. She does not use assistance at baseline, denies difficulty with ambulation. She does not use oxygen at baseline. She has not had her home medications in multiple days due to being on the floor. She wishes to be full code at this time. Discharge Exam General: Alert rate oriented to name and hospital NAD. Cooperative. HEENT: Atraumatic, normocephalic. Vision and hearing grossly intact, no acute distress Pulm: CTAB A&P. -wheezes, -rales, -rhonchi. Symmetrical chest rise. No increased work of breathing. No respiratory distress. Cardiac: RRR, -mrg. Radial pulses intact and symmetrical. Discharge Plan Discharge Items Patient Disposition: Home - Home Health Services Reason For Visit: FALL, RHABDOMYOLYSIS Discharge Diagnosis: fall, dehydration Activity: Per Instructions section Non-emergency contact: Primary Care Provider Call non-emergency contact if: your symptoms worsen and your pain is not controlled Follow-up/Referrals: Michelle Erickson MD [Primary Care Provider] - Diet: Regular Addtl Attending Provider Instructions: You were evaluated and treated at [facility] after you and your were found on the floor of your home by your grandson, Michael. It appeared as though you were only the floor for at least a day or two before being found, so you were both dehydrated and with labs indicating some muscle breakdown, known as rhabdomyolysis. You were given IV hydration with electrolytes and had perked up the next day to the point of being alert and oriented x3. Master and Ayan have been working with PT and OT to improve you strength before leaving the hospital. It was additionally found that you had a small painful lesion with clusters and surrounding redness suggesting possible shingles, which we have given you Valtrex to treat for a week. As you have been deemed to not have decision-making capacity, your grandson, Michael, has made the decision to have master and Ayan go stay with your son-in-law until other arrangements Where you will have acute rehab to continue rebuilding your strength and continue to live in a long-term care facility. This help to avoid preventable hospital visits for unwitnessed falls, as there will be good supervision and safety precautions in place. Please follow up with your PCP within a week of discharge if possible to ensure you continue to be in good health post-discharge. Thank you for allowing us to participate in your care. Pending Studies at Discharge: No Stand-Alone Forms: My [employer], Smoking Cessation Medications and DC Order Prescriptions: Continued tolterodine 2 mg tablet 2 mg PO BID 90 Days Qty: 180 1RF paroxetine HCl 10 mg tablet 10 mg PO QAM Qty: 90 3RF acetaminophen 325 mg tablet 650 mg PO Q6H PRN (Reason: Pain) ascorbic acid (vitamin C) 500 mg tablet 500 mg PO QAM Qty: 30 cholecalciferol (vitamin D3) 1,000 unit (25 mcg) tablet 1,000 units PO QAM magnesium oxide 400 mg (241.3 mg magnesium) tablet 800 mg PO QID vitamin E succinate 400 unit tablet 400 units PO QAM pyridostigmine bromide 60 mg tablet See Rx Instructions PO QID 90 Days Qty: 270 3RF Dose Instruction: take one po in am and 5pm, take half at noon and HS PO QID; take one po in am and 5pm, take half at noon and HS PO TID; Rx Instructions: take one po in am and 5pm, take half at noon and HS azathioprine 50 mg tablet 50 mg PO BID Shingrix (PF) 50 mcg/0.5 mL suspension for reconstitution 0.5 ml IM ONCE Qty: 1 0RF pantoprazole 20 mg tablet,delayed release (DR/EC) 20 mg PO QAM Qty: 90 3RF multivitamin Tablet 1 tab PO QAM vitamin B complex Tablet 1 tab PO QAM calcium lactate 84 mg (648 mg) Tablet 84 mg PO QAM Glucosamine Chondroitin 550-30-1 mg Capsule 1 cap PO QAM Changed metoprolol succinate 25 mg tablet extended release 24 hr 12.5 mg PO QAM Qty: 90 3RF Krames/Other Patient Handouts: Fall Prevention Assessing Risk, Falls Prevent Adjust Living Space, Falls Prevent Use Cane Walker, Exercises to Prevent Falls Admission Data Admit Date/Time: 05/16/24 22:33 Attending Provider: Jay Nicole Admit Provider: dEmond Mitchell Primary Care Provider: Michelle Erickson V. Other Providers: Edmond Mitchell Hospital Stay Data Consultations 05/16/24 21:07 ED Decision to Admit Stat Diagnostic Imagining Performed 05/16/24 19:24 CT abd pelvis wo con Stat CT cervical spine wo con Stat CT chest diagnostic wo con Stat CT head/brain wo con Stat Discharge Instructions Given to Patient (Per Discharging Provider) You were evaluated and treated at [facility] after you and your were found on the floor of your home by your grandson, Michael. It appeared as though you were only the floor for at least a day or two before being found, so you were both dehydrated and with labs indicating some muscle breakdown, known as rhabdomyol ysis. You were given IV hydration with electrolytes and had perked up the next day to the point of being alert and oriented x3. Master and Ayan have been working with PT and OT to improve you strength before leaving the hospital. It was additionally found that you had a small painful lesion with clusters and surrounding redness suggesting possible shingles, which we have given you Valtrex to treat for a week. As you have been deemed to not have decision-making capacity, your grandson, Michael, has made the decision to have master and Ayan go stay with your son-in-law until other arrangements Where you will have acute rehab to continue rebuilding your strength and continue to live in a long-term care facility. This help to avoid preventable hospital visits for unwitnessed falls, as there will be good supervision and safety precautions in place. Please follow up with your PCP within a week of discharge if possible to ensure you continue to be in good health post-discharge. Thank you for allowing us to participate in your care. Coding
[2024-06-06] MEDS: LACTATED RINGER'S 500 ML IV ONE (13:21)
--- NOTE | 2024-06-06 14:44 | Hospitalist Progress Note ---
Date of Service June 06, 2024 Assessment & Plan (1) Fall: Plan: Jaqui is a 88 y/o female with a past medical history of myasthenia gravis, hypertension, GERD, depression. She presented to the ED with her after they were found in their home on the floor by their grandson Michael for unknown number of days. It is unsure how long they were on the ground for, patient denies falling, confused from baseline on arrival. She was being admitted for rhabdomyolysis, dehydration, PT/OT here for . CM is working on finding placement. No official POA yet. She and her considering their granddaughter Jana to be their POA Fall, ambulatory dysfunction PT/OT recommended PCF/24-hour care. Originally granddaughter and ADIRANNA were looking to private 24-hour care until placement was available, this is not currently feasible per discussion with case management and family. Continuing to pursue placement which is likely available midweek #Sacral Pressure Ulcer (Unstageable) -Improving #Acute dehydration -Resolved - Encouraged pt to drink water frequently throughout the day to prevent another episode. Asymptomatic hypotension, bradycardia No symptoms of this, but given underlying weakness and falls would err on side of caution. Metoprolol has been held Somewhat diminished intake and borderline low blood pressure today. 1 L of supplemental fluids ordered #Delirium on dementia Seems back to baseline Severe baseline Cognitive deficit #Shingles - Resolved. -Completed 7 days course of Valtrex. #Overflow diarrhea 2/2 to constipation, improved. #Rhabdomyolysis -Resolved #Asymptomatic Bacteriuria -Urine CS : no growth at 24hrs #Myasthenia Gravis -Follows with neurology outpatient. No flare now. -PT/OT continued. -Continue pyridostigmine -Continue Azathioprine due to clinical lack of acute infection Chronic stable diagnoses: HTNToprol held Depressioncontinue paroxetine GERDcontinue pantoprazole Urinary incontinencecontinue tolterodine, Rush removed on 05/18/24 VTE ppx: Lovenox Diet: heart healthy Code: Full (2) Acute dehydration: (3) Shingles: (4) Cognitive decline: (5) Overflow diarrhea: (6) Delirium: (7) Rhabdomyolysis: (8) Myasthenia gravis: (9) Asymptomatic bacteriuria: Admission and Anticipated Discharge Date Admission Date: May 16, 2024 Subjective Seen at the bedside this morning. Eating breakfast comfortably. No questions or concerns. Denies chest pain, chest pressure, lightheadedness, dizziness. Slightly low blood pressure and heart rate on recheck. Metoprolol held. Asymptomatic from this. Is awaiting placement, eating breakfast pleasantly this morning with her next to her and has no acute concerns. Fevers or chills Physical Exam Physical Exam: General: Pleasant, oriented to name. HEENT: Atraumatic, normocephalic. Vision and hearing intact Pulm: Symmetrical chest rise. No increased work of breathing. No respiratory distress. Cardiac: Right radial pulse intact, regular. Cap refill of the right hand is less than 2 seconds Results & Data Results & Data Vital Signs (Past 12 Hours) Vital Signs Temp Pulse Pulse Resp BP Pulse Ox O2 Del Method 06/06/24 11:10 36.2 C L 56 L 17 95/50 L 97 Room Air 06/06/24 09:00 55 L 06/06/24 07:35 36.4 C L 58 L 16 109/58 L 97 Room Air PG Care Time/CCT Total # of Minutes Spent Total Time Spent with Patient: Total time spent is greater than 50% in coordination of care (as documented) at patient's floor/unit and/or counseling patient: Coding Level of Care Code 74752 SUB INP/OBS CARE 2/35MIN Diagnoses Fall W19.XXXA Acute dehydration E86.0 Shingles B02.9 Cognitive decline R41.89 Overflow diarrhea R19.7 Delirium R41.0 Rhabdomyolysis M62.82 Myasthenia gravis G70.00 Asymptomatic bacteriuria R82.71
--- NOTE | 2024-06-07 15:28 | Hospitalist Progress Note ---
Date of Service June 07, 2024 Assessment & Plan (1) Fall: Plan: Jaqui is a 88 y/o female with a past medical history of myasthenia gravis, hypertension, GERD, depression. She presented to the ED with her after they were found in their home on the floor by their grandson Michael for unknown number of days. It is unsure how long they were on the ground for, patient denies falling, confused from baseline on arrival. She was being admitted for rhabdomyolysis, dehydration, PT/OT here for . CM is working on finding placement. No official POA yet. She and her considering their granddaughter Jana to be their POA Fall, ambulatory dysfunction PT/OT recommended PCF/24-hour care. Placement pending, likely available midweek possibly 3/ #Sacral Pressure Ulcer (Unstageable) -Improving #Acute dehydration -Resolved - Encouraged pt to drink water frequently throughout the day to prevent another episode. Asymptomatic hypotension, bradycardia No symptoms of this, but given underlying weakness and falls would err on side of caution. Metoprolol has been held. Blood pressure is improved lower range of normal, heart rate remains low but with appropriate chronotropic respons #Delirium on dementia Seems back to baseline Severe baseline Cognitive deficit #Shingles - Resolved. -Completed 7 days course of Valtrex. #Overflow diarrhea 2/2 to constipation, improved. #Rhabdomyolysis -Resolved #Asymptomatic Bacteriuria -Urine CS : no growth at 24hrs #Myasthenia Gravis -Follows with neurology outpatient. No flare now. -PT/OT continued. -Continue pyridostigmine -Continue Azathioprine due to clinical lack of acute infection Chronic stable diagnoses: HTNToprol held. Depressioncontinue paroxetine GERDcontinue pantoprazole Urinary incontinencecontinue tolterodine, Rush removed on 05/18/24 VTE ppx: Lovenox Diet: heart healthy Code: Full (2) Acute dehydration: (3) Shingles: (4) Cognitive decline: (5) Overflow diarrhea: (6) Delirium: (7) Rhabdomyolysis: (8) Myasthenia gravis: (9) Asymptomatic bacteriuria: Admission and Anticipated Discharge Date Admission Date: May 16, 2024 Subjective Emergency with bedside. She is pleasant and sitting comfortably with her . No complaints overnight. No lightheadedness, dizziness, chest pain, chest pressure, fever, chills. Discussed that her metoprolol was held, no questions regarding this Physical Exam Physical Exam: General: Pleasant, oriented to name. HEENT: Atraumatic, normocephalic. Vision and hearing intact Pulm: Symmetrical chest rise. No increased work of breathing. No respiratory distress. Cardiac: Right radial pulse intact, regular. Cap refill of the right hand is less than 2 seconds Results & Data Results & Data Vital Signs (Past 12 Hours) Vital Signs Temp Pulse Resp BP Pulse Ox O2 Del Method 06/07/24 07:51 36.4 C L 48 L 16 118/51 L 95 Room Air PG Care Time/CCT Total # of Minutes Spent Total Time Spent with Patient: Total time spent is greater than 50% in coordination of care (as documented) at patient's floor/unit and/or counseling patient: Coding Level of Care Code 54061 SUB INP/OBS CARE 2/35MIN Diagnoses Fall W19.XXXA Acute dehydration E86.0 Shingles B02.9 Cognitive decline R41.89 Overflow diarrhea R19.7 Delirium R41.0 Rhabdomyolysis M62.82 Myasthenia gravis G70.00 Asymptomatic bacteriuria R82.71
--- NOTE | 2024-06-08 15:39 | Hospitalist Progress Note ---
Date of Service June 08, 2024 Assessment & Plan (1) Fall: Plan: Jaqui is a 88 y/o female with a past medical history of myasthenia gravis, hypertension, GERD, depression. She presented to the ED with her after they were found in their home on the floor by their grandson Michael for unknown number of days. It is unsure how long they were on the ground for, patient denies falling, confused from baseline on arrival. She was being admitted for rhabdomyolysis, dehydration, PT/OT here for . CM is working on finding placement. No official POA yet. She and her considering their granddaughter Jana to be their POA #Fall, ambulatory dysfunction PT/OT recommending PCF/24h care. Plan to go to [facility] 06/09. #Sacral Pressure Ulcer (Unstageable) Wound care - clean w/ saline, cover with Optifoam, change q 3 days Do not cover w/ foam. Can apply stoma powder & barrier cream #Acute dehydration Resolved Encouraged pt to drink water frequently throughout the day to prevent another episode. #Asymptomatic hypotension, bradycardia No symptoms, but given underlying weakness and falls would err on side of caution. HR/BP remains low to normal w/ metoprolol being held --> discontinue metoprolol #Asymptomatic Bacteriuria -Urine CS : no growth at 24hrs Treated this hospital stay: Shingles: s/p 7 day course of Valtrex Overflow diarrhea: improving Rhabdomyolysis: resolved Delirium on dementia: back to baseline Chronic stable diagnoses: Depressioncontinue paroxetine GERDcontinue pantoprazole Urinary incontinencecontinue tolterodine, Rush removed on 05/18/24 Myasthenia Gravis: continue pyridostigmine & Azathioprine. Follows w/ neurology outpatient. Not in flare currently. VTE ppx: Lovenox Diet: heart healthy Code: Full Anticipate discharge to [facility] in [place] 06/09. Discussed discharge planning w/ SHIRA 06/08. (2) Acute dehydration: (3) Shingles: (4) Cognitive decline: (5) Overflow diarrhea: (6) Delirium: (7) Rhabdomyolysis: (8) Myasthenia gravis: (9) Asymptomatic bacteriuria: Admission and Anticipated Discharge Date Admission Date: May 16, 2024 Subjective Patient seen and examined this morning. Patient denies any complaints at time of visit. Physical Exam Constitutional: WD/WN, vitals as above Eyes: PERRL, conjunctivae normal, anicteric sclerae Respiratory: breathing unlabored Cardiovascular: well perfused Results & Data Results & Data Vital Signs (Past 12 Hours) Vital Signs Temp Pulse Resp BP Pulse Ox O2 Del Method 06/08/24 07:40 36.5 C 68 16 100/58 L 96 Room Air 06/08/24 07:40 Room Air PG Care Time/CCT Total # of Minutes Spent Total Time Spent with Patient: Total time spent is greater than 50% in coordination of care (as documented) at patient's floor/unit and/or counseling patient: Coding Level of Care Code 54906 SUB INP/OBS CARE 2/35MIN Diagnoses Fall W19.XXXA Acute dehydration E86.0 Shingles B02.9 Cognitive decline R41.89 Overflow diarrhea R19.7 Delirium R41.0 Rhabdomyolysis M62.82 Myasthenia gravis G70.00 Asymptomatic bacteriuria R82.71
--- NOTE | 2024-06-09 09:06 | Discharge Summary ---
Discharge Summary Date of Service June 09, 2024 Principal Dx & Hospital Course #1 = Principal Diagnosis (1) Fall: Jaqui is a 88 y/o female with a past medical history of myasthenia gravis, hypertension, GERD, depression. She presented to the ED with her after they were found in their home on the floor by their grandson Michael for unknown number of days. It is unsure how long they were on the ground for, patient denies falling, confused from baseline on arrival. She was being admitted for rhabdomyolysis, dehydration, PT/OT here for. No official POA yet. She and her considering their granddaughter Jana to be their POA #Fall, ambulatory dysfunction PT/OT recommending PCF/24h care. Plan to go to [facility] 06/09. #Sacral Pressure Ulcer (Unstageable) Wound care - clean w/ saline, cover with Optifoam, change q 3 days Do not cover w/ foam. Can apply stoma powder & barrier cream #Asymptomatic hypotension, bradycardia No symptoms, but given underlying weakness and falls would err on side of caution. HR/BP remains low to normal w/ metoprolol being held --> discontinue metoprolol #Asymptomatic Bacteriuria -Urine CS : no growth at 24hrs Treated this hospital stay: Shingles: s/p 7 day course of Valtrex Overflow diarrhea: improving Rhabdomyolysis: resolved Delirium on dementia: back to baseline Dehydration: resolved, encourage PO intake Chronic stable diagnoses: Depressioncontinue paroxetine GERDcontinue pantoprazole Urinary incontinencecontinue tolterodine, Rush removed on 05/18/24 Myasthenia Gravis: continue pyridostigmine & Azathioprine. Follows w/ neurology outpatient. Not in flare currently. Discharge to [facility] in [place] 06/09. (2) Acute dehydration: (3) Shingles: (4) Cognitive decline: (5) Overflow diarrhea: (6) Delirium: (7) Rhabdomyolysis: (8) Myasthenia gravis: (9) Asymptomatic bacteriuria: Discharge Exam Constitutional WD/WN, vitals as above Eyes PERRL, conjunctivae normal, anicteric sclerae Respiratory breathing unlabored Cardiovascular well perfused Discharge Plan Discharge Items Patient Disposition: Home - Home Health Services Reason For Visit: FALL, RHABDOMYOLYSIS Discharge Diagnosis: fall, dehydration Activity: Per Instructions section Non-emergency contact: Primary Care Provider Call non-emergency contact if: your symptoms worsen and your pain is not controlled Follow-up/Referrals: Michelle Erickson MD [Primary Care Provider] - Diet: Regular Addtl Attending Provider Instructions: You were evaluated and treated at [facility] after you and your were found on the floor of your home by your grandson, Michale. It appeared as though you were only the floor for at least a day or two before being found, so you were both dehydrated and with labs indicating some muscle breakdown, known as rhabdomyolysis. You were given IV hydration with electrolytes and had perked up the next day to the point of being alert and oriented x3. Master and Ayan have been working with PT and OT to improve you strength before leaving the hospital. It was additionally found that you had a small painful lesion with clusters and surrounding redness suggesting possible shingles, which we have given you Valtrex to treat for a week. As you have been deemed to not have decision-making capacity, your grandson, Michael, has made the decision to have master and Ayan go to a personal detention. This will help to avoid preventable hospital visits for unwitnessed falls, as there will be good supervision and safety precautions in place. Please follow up with your PCP within a week of discharge if possible to ensure you continue to be in good health post-discharge. Thank you for allowing us to participate in your care. Pending Studies at Discharge: No Stand-Alone Forms: My [facility], Smoking Cessation Medications and DC Order Prescriptions: Continued tolterodine 2 mg tablet 2 mg PO BID 90 Days Qty: 180 1RF paroxetine HCl 10 mg tablet 10 mg PO QAM Qty: 90 3RF acetaminophen 325 mg tablet 650 mg PO Q6H PRN (Reason: Pain) ascorbic acid (vitamin C) 500 mg tablet 500 mg PO QAM Qty: 30 cholecalciferol (vitamin D3) 1,000 unit (25 mcg) tablet 1,000 units PO QAM magnesium oxide 400 mg (241.3 mg magnesium) tablet 800 mg PO QID vitamin E succinate 400 unit tablet 400 units PO QAM pyridostigmine bromide 60 mg tablet See Rx Instructions PO QID 90 Days Qty: 270 3RF Dose Instruction: take one po in am and 5pm, take half at noon and HS PO QID; take one po in am and 5pm, take half at noon and HS PO TID; Rx Instructions: take one po in am and 5pm, take half at noon and HS azathioprine 50 mg tablet 50 mg PO BID Shingrix (PF) 50 mcg/0.5 mL suspension for reconstitution 0.5 ml IM ONCE Qty: 1 0RF pantoprazole 20 mg tablet,delayed release (DR/EC) 20 mg PO QAM Qty: 90 3RF multivitamin Tablet 1 tab PO QAM vitamin B complex Tablet 1 tab PO QAM calcium lactate 84 mg (648 mg) Tablet 84 mg PO QAM Glucosamine Chondroitin 550-30-1 mg Capsule 1 cap PO QAM Held metoprolol succinate 25 mg tablet extended release 24 hr 25 mg PO QAM Qty: 90 3RF Hold Instructions: Resume on 07/27/24. until established w/ PCP - BP/HR stable w/o BB currently Discharge Orders: Discharge Order (Routine); Ordered 06/09/24 Ordered By: Leida Cox/Other Patient Handouts: Fall Prevention Assessing Risk, Falls Prevent Adjust Living Space, Falls Prevent Use Cane Walker, Exercises to Prevent Falls Admission Data Admit Date/Time: 05/16/24 22:33 Attending Provider: Mariia Kingsley Admit Provider: Edmond Mitchell Primary Care Provider: Michelle Erickson V. Other Providers: Edmond Mitchell Hospital Stay Data Consultations 05/16/24 21:07 ED Decision to Admit Stat Diagnostic Imagining Performed 05/16/24 19:24 CT abd pelvis wo con Stat CT cervical spine wo con Stat CT chest diagnostic wo con Stat CT head/brain wo con Stat Pending Results Patient Have Any Pending Studies at Discharge: No Discharge Instructions Given to Patient (Per Discharging Provider) You were evaluated and treated at [facility] after you and your were found on the floor of your home by your grandson, Michael. It appeared as though you were only the floor for at least a day or two before being found, so you were both dehydrated and with labs indicating some muscle breakdown, known as rhabdomyolysis. You were given IV hydration with electrolytes and had perked up the next day to the point of being alert and oriented x3. Master and Ayan have been working with PT and OT to improve you strength before leaving the hospital. It was additionally found that you had a small painful lesion with clusters and surrounding redness suggesting possible shingles, which we have given you Valtrex to treat for a week. As you have been deemed to not have decision-making capacity, your grandson, Michael, has made the decision to have you and Ayan go to a personal detention. This will help to avoid preventable hospital visits for unwitnessed falls, as there will be good supervision and safety precautions in place. Please follow up with your PCP within a week of discharge if possible to ensure you continue to be in good health post-discharge. Thank you for allowing us to participate in your care. Total Time Total Time Spent Total Time Spent (In Minutes): 40 Total Time Includes: Examination of the Patient, Discharge Planning and Medication Reconciliation Coding Level of Care Code 87378 INP/OBS DISCH >30 MIN Diagnoses Fall W19.XXXA Acute dehydration E86.0 Shingles B02.9 Cognitive decline R41.89 Overflow diarrhea R19.7 Delirium R41.0 Rhabdomyolysis M62.82 Myasthenia gravis G70.00 Asymptomatic bacteriuria R82.71
[2024-06-09 10:17] VITALS: BP 104/63; PULSE 63; RESP 16; TEMP 98.1; O2SAT 97
== END 2024-06-09 11:14 | disposition home health service (06) | DRG 557 ==
LOC: ED 17:24 → EDINP 22:33 → SUATTDRO 22:33 → 2N 05-17 00:36 → 1E 05-27 13:29 → 2N 05-27 13:30 → 3N 06-01 22:40